=== PATIENT | male | born 1945 | race Caucasian/White ===

== ENCOUNTER → 2023-04-20 15:05 | Outpatient (REF) | payer MEDICARE, OTHER, SELFPAY | LOC: DHCBC MAIN 15:05 | PROVIDERS: ATTENDING PHYSICIAN Internal Medicine Cardiovascular Disease; FAMILY PHYSICIAN Internal Medicine | DX: I35.1 Nonrheumatic aortic (valve) insufficiency (principal) | CPT/HCPCS: 93306 ==

== ENCOUNTER 2023-10-12 07:10 | Day surgery (SDC) | payer MEDICARE, OTHER, SELFPAY | END 2023-10-12 10:28 | disposition home or self-care (01) | LOC: CATH 07:10 | PROVIDERS: ATTENDING PHYSICIAN Internal Medicine Cardiovascular Disease; FAMILY PHYSICIAN Internal Medicine | DX: I08.0 Rheumatic disorders of both mitral and aortic valves (principal) | CPT/HCPCS: 93312; 93320; 93325; 36415; 80053; 85025 ==

== ENCOUNTER 2023-10-15 07:31 | Day surgery (SDC) | payer MEDICARE, OTHER, SELFPAY ==
[2023-10-15 07:45] VITALS: BMI 29.4
[2023-10-15 07:57] VITALS: BP 131/53
[2023-10-15 08:01] VITALS: BP 131/53
[2023-10-15] MEDS: NSS 287 ML IV (08:17)
[2023-10-15 09:38] VITALS: BP 136/63
[2023-10-15 09:42] VITALS: BP 136/63
--- NOTE | 2023-10-15 10:09 | ITS.CL.CATH ---
Bottom Worker - Catheterization
Cardiac Catheterization
Procedure Report:
CARDIAC CATHETERIZATION REPORT
Date of Procedure: 10/15/2023
Referring: Doug An MD
HEMODYNAMIC DATA (mmHg)
AO: 128/61 (88)
LV: 121/11 (EDP 16)
CORONARY ANGIOGRAPHY
Dominance: Right
Left Main: Normal
LAD: 40% mid LAD stenosis that is angiographically slightly improved compared with its appearance on the prior study from 2020. There is diffuse tapering of the distal LAD without focal stenosis. There are mild luminal irregularities in a large D1
that are also mildly improved in appearance from prior.
Circumflex: Circumflex has 40% stenosis distal to the takeoff of the large OM1. OM1 has 40% mid vessel stenosis that is angiographically unchanged from prior study.
RCA: Dominant vessel with mild luminal irregularities in the RCA proper. There is 60% stenosis in the mid PDA unchanged in appearance from the prior study in 2020.
Closure Device: 6F Angioseal
Radiation (mGy): 484.54
DAP (cm2.Gy): 34.8429
Fluoroscopy time: 3.6 minutes
CONCLUSIONS
1. Stable mild CAD. The 40% LAD stenosis is angiographically stable and mild, and supplies a small territory. Would not consider bypassing the mid-LAD if the patient is to need AVR.
2. Mildly elevated LVEDP (16 mmHg). Of note, LV tracing does not demonstrate diastasis.
Copy to: Doug An MD
Masood Brandt MD, PhD
--- NOTE | 2023-10-15 12:04 | PTCARENOTE ---
Lunch relief. Bedside report taken from Asif BOURGEOIS. Pt w/o complaint at this time. Will continue to monitor
== END 2023-10-15 12:40 | disposition home or self-care (01) ==
LOC: CATH 07:31
PROVIDERS: ATTENDING PHYSICIAN Student in an Organized Health Care Education/Training Program; FAMILY PHYSICIAN Internal Medicine; OTHER PHYSICIAN Internal Medicine
DX: I25.10 Atherosclerotic heart disease of native coronary artery without angina pectoris (principal); I35.1 Nonrheumatic aortic (valve) insufficiency; Z79.82 Long term (current) use of aspirin; Z79.899 Other long term (current) drug therapy
CPT/HCPCS: 93458; C1760; C1894; Q9967

== ENCOUNTER → 2023-10-20 10:55 | Outpatient (REF) | payer MEDICARE, OTHER, SELFPAY | LOC: HWRAD 10:55 | PROVIDERS: ATTENDING PHYSICIAN Thoracic Surgery (Cardiothoracic Vascular Surgery) | DX: I35.1 Nonrheumatic aortic (valve) insufficiency (principal); Z01.818 Encounter for other preprocedural examination | CPT/HCPCS: 71275; 74174; Q9967 ==

== ENCOUNTER 2023-10-22 05:26 | Inpatient (IN) | payer MEDICARE, OTHER, SELFPAY ==
[2023-10-19 10:24] VITALS: BMI 30.3
[2023-10-19 11:15] LABS: % Basophils 0.6 % (0-2); % Eosinophils 1.5 % (0-6); % Immature Granulocytes 0.2 % (0-0.5); % Lymphocytes 17.8 % (20.5-51.1); % Monocytes 5.6 % (1.7-9.3); % Neutrophils 74.3 % (42.2-75.2); Absolute Basophils 0.1 10^3/uL (0-0.2); Absolute Eosinophils 0.1 10^3/uL (0-0.7); Absolute Lymphocytes 1.6 10^3/uL (1.2-3.4); Absolute Monocytes 0.5 10^3/uL (0.1-0.6); Absolute Neutrophils 6.5 10^3/uL (1.4-6.5); Hematocrit 41.3 % (39.0-52.0); Hemoglobin 14.2 g/dL (13.0-18.0); Mean Corp Hgb Conc. 34.4 g/dL (33.0-37.0); Mean Corpuscular Hgb 33.3 pg (27.0-31.0); Mean Corpuscular Volume 96.7 fL (80.0-94.0); Mean Platelet Volume 9.1 fL (7.4-10.4); Nucleated Red Blood Cells % 0 % (-); Platelet Count 205 10^3/uL (130-400); Red Blood Cell Count 4.27 10^6/uL (4.70-6.10); White Blood Cell Count 8.7 10^3/uL (4.8-10.8)
[2023-10-19 11:32] LABS: INR 1.07; PT 13.7 Sec (11.4-14.6)
[2023-10-19 11:33] LABS: APTT 30.4 Sec (23.4-35.0)
[2023-10-19 11:50] LABS: Urine Albumin Negative (Neg - Trace); Urine Bilirubin Negative (Negative); Urine Character Clear (Clear); Urine Color Yellow; Urine Glucose Negative (Negative); Urine Ketone Negative (Negative); Urine Leukocyte Negative (Negative); Urine Nitrite Negative (Negative); Urine Occult Blood Negative (Negative); Urine Urobilinogen Negative (Neg - 1+)
[2023-10-19 11:50] LABS: ALT (SGPT) 14 U/L (0-50); AST (SGOT) 20 U/L (17-59); Albumin 4.5 g/dl (3.5-5.0); Alkaline Phosphatase 57 U/L (38-126); Blood Urea Nitrogen 19 mg/dl (9-20); Calcium 9.7 mg/dl (8.4-10.2); Carbon Dioxide 29 mmol/L (22-30); Chloride 101 mmol/L (98-107); Direct Bilirubin 0.1 mg/dl (0.0-0.4); Estimated Creatinine Clearance 80 ml/min; Glucose 89 mg/dl (70-99); Potassium 4.5 mmol/L (3.5-5.1); Sodium 138 mmol/L (135-145); Total Bilirubin 0.9 mg/dl (0.2-1.3); Total Protein 6.7 g/dl (6.3-8.2); eGFR > 60.00
[2023-10-19 12:01] LABS: Glycohemoglobin (HgbA1c) 5.1 % (4.0-5.6)
--- NOTE | 2023-10-19 12:28 | CM ---
spoke to pt wilfred PAT, we discussed preop teaching including driving and lefiting restrictions. he is prev indep, lives with his in a 2 story home with no step sto enter. he denies any dme's. he has the cardiac educ book, soap and instructions. he
is agreeable to a f/u visit from the ct transitional care nurse after dc. plan is for AVR 10/21, cm role expalined and all questions answered.
[2023-10-22] VITALS (16 sets, daily range): BP systolic 105–140; BP diastolic 58–75; BMI 30.3; BMI 28.4
[2023-10-22] MEDS: BACTROBAN 2% OINTMENT 1 APPLIC NASAL ×2 (06:00→19:46)
[2023-10-22] MEDS: LOPRESSOR 12.5 MG PO (06:00)
[2023-10-22] MEDS: PROTONIX 40 MG PO (06:01)
[2023-10-22] MEDS: MAGNESIUM OXIDE 500 MG PO (06:01)
--- NOTE | 2023-10-22 06:25 | W.CVOR.SURPR ---
CVOR Surgeon Immed Pre Op
-
I have examined this patient prior to performance of the scheduled procedure.
The patient's condition is unchanged from the time of the dictated/written History and
Physical and the patient is able to undergo the scheduled procedure.
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
Understands that it will be an intraop decision to place 5.5 Impella
Elevated CHADsVAsc Score - RAUL Clip indicated
--- NOTE | 2023-10-22 06:51 | PTCARENOTE ---
Pt admitted to CVICU at 0534. VS done. Pt weighed. Pt clipped and prepped per CVOR protocol. CHG bath completed. ABO sent. Pt has been NPO since 10/21/23 at 1700. He had his 2 Hibiclens showers, as ordered. Pre op meds given. HR 54. LUMA Flannery
notified. Order given to decrease Metoprolol to 12.5 mg this am. at bedside this am. Dr. Mayer in to see pt and . Pt taken to CVOR with 2 RNs at 0630. Report given to CVOR RN.
[2023-10-22 07:05] LABS: ACT+ - POC 104 Seconds (82-134)
[2023-10-22 07:30] LABS: Urine Albumin Negative (Neg - Trace); Urine Bilirubin Negative (Negative); Urine Character Clear (Clear); Urine Color Yellow; Urine Glucose Negative (Negative); Urine Ketone Negative (Negative); Urine Leukocyte Negative (Negative); Urine Nitrite Negative (Negative); Urine Occult Blood 3+ (Negative); Urine Urobilinogen Negative (Neg - 1+)
[2023-10-22 07:52] LABS: B.E. - POC 1.6 mmol/L; Glucose - POC 94 mg/dl (65-99); HCO3 - POC 27 mmol/L (21-29); Hematocrit - POC 32 % PCV (42-52); Hemodilution- POC No; Hemoglobin Calculated - POC 10.9; Ionized Calcium - POC 1.17 mmol/L (1.12-1.27); PCO2 - POC 45 mmHg (35-45); PO2 - POC 584 mmHg (80-100); POC Comment PRE; Potassium - POC 3.3 mmol/L (3.6-5.0); Sodium - POC 142 mmol/L (135-145); pH - POC 7.39 (7.35-7.45)
[2023-10-22 08:13] LABS: ACT+ - POC 561 Seconds (82-134)
[2023-10-22 08:27] LABS: Urine Red Blood Cell 30-40 /HPF (0-2); Urine White Cell 0-2 /HPF (0-5)
[2023-10-22 08:34] LABS: B.E. - POC 1.1 mmol/L; Glucose - POC 89 mg/dl (65-99); HCO3 - POC 27 mmol/L (21-29); Hematocrit - POC 32 % PCV (42-52); Hemodilution- POC Yes; Ionized Calcium - POC 1.17 mmol/L (1.12-1.27); O2 Saturation %Calculated-POC 79.4 5 (92-96); PCO2 - POC 48 mmHg (35-45); PO2 - POC 46 mmHg (80-100); POC Comment MIXED VENOUS; Potassium - POC 3.5 mmol/L (3.6-5.0); Sodium - POC 141 mmol/L (135-145); pH - POC 7.36 (7.35-7.45)
[2023-10-22 08:45] LABS: ACT+ - POC 553 Seconds (82-134)
[2023-10-22 09:01] LABS: B.E. - POC 5.2 mmol/L; Glucose - POC 101 mg/dl (65-99); HCO3 - POC 28 mmol/L (21-29); Hematocrit - POC 26 % PCV (42-52); Hemodilution- POC Yes; Hemoglobin Calculated - POC 8.7; Ionized Calcium - POC 1.02 mmol/L (1.12-1.27); O2 Saturation %Calculated-POC 99.9 5 (92-96); PCO2 - POC 35 mmHg (35-45); PO2 - POC 246 mmHg (80-100); POC Comment CPB; Potassium - POC 4.4 mmol/L (3.6-5.0); Sodium - POC 139 mmol/L (135-145); pH - POC 7.51 (7.35-7.45)
[2023-10-22 09:11] LABS: ACT+ - POC 541 Seconds (82-134)
[2023-10-22 09:52] LABS: Glucose - POC 122 mg/dl (65-99); HCO3 - POC 28 mmol/L (21-29); Hematocrit - POC 31 % PCV (42-52); Hemodilution- POC Yes; Hemoglobin Calculated - POC 10.5; Ionized Calcium - POC 1.05 mmol/L (1.12-1.27); PCO2 - POC 37 mmHg (35-45); PO2 - POC 473 mmHg (80-100); POC Comment WARM; Potassium - POC 4.5 mmol/L (3.6-5.0); Sodium - POC 140 mmol/L (135-145)
[2023-10-22 09:57] LABS: ACT+ - POC 109 Seconds (82-134)
[2023-10-22 10:23] LABS: B.E. - POC 1.7 mmol/L; Glucose - POC 150 mg/dl (65-99); HCO3 - POC 26 mmol/L (21-29); Hematocrit - POC 30 % PCV (42-52); Hemodilution- POC Yes; Hemoglobin Calculated - POC 10.3; Ionized Calcium - POC 1.29 mmol/L (1.12-1.27); O2 Saturation %Calculated-POC 99.7 5 (92-96); PCO2 - POC 40 mmHg (35-45); PO2 - POC 200 mmHg (80-100); POC Comment POST; Sodium - POC 142 mmol/L (135-145); pH - POC 7.43 (7.35-7.45)
[2023-10-22 10:45] LABS: Glucose - Point of Care 161 mg/dl (70-99)
--- NOTE | 2023-10-22 10:51 | W.PN.UPDATE ---
Update Note
Progress Note Update
IV fluids: 1100
U.O.:� 1000
UF:� 2000
Blood:� none (2units of cellsaver)
Wires:� A+V
Inotropes:�Dobutamine
Pressors:� levo
Sedatives:� precedex
�
NEURO: sedated on Precedex, pupils +Xmm B/L
RESP: #8OT @24cm> 16/550/60/5. Lungs clear B/L. 2 mediastinal (30cc on arrival) chest tubes to -20cm suction. Sanguineous drainage
CV: RRR +S1, S2, no S3, no�rub, no murmur. Dermabond to median sternotomy. RIJ w/Hardaway locked @ 48cm. PA ; CVP 8;
ABD: round, soft, no BS
EXT: no edema, +2/4 DP pulses B/L, no femoral bruit, left radial A-line intact
: Christopher with clear yellow urine
�
A/P: POD #0 s/p Surgical aortic valve replacement [29 mm bioprosthesis], LAAC
ANDI: EF�30% w/ no sig wall motion abnormalities
- wean and extubate
- Monitor CT and urine output
- Follow up labs and CXR
- Wean levophed for maps >65
- Will start ASA tonight
- EKG pending and will send to cards
- required amio bolus and lidocaine intraop for Vfib Shock x1
>>currently junctional; hold amio
- Cards consulted
- will need instruction regarding antibiotic prophylaxis for dental and invasive procedures
�
# acute surgical blood loss anemia-expected
- trend CBC
- transfusion goal Hgb <7
- Continue Iron supplementation�
�
# hyerglycemia
- insulin infusion x 24h
- hgb A1c 5.1
�
# Hyperlipidemia
- resume�statin when tolerating PO
--- NOTE | 2023-10-22 10:54 | W.PN.CT.SURG ---
CT Surgery Operative Note
-
CARDIAC SURGERY OPERATIVE REPORT
Preoperative Diagnosis: Aortic valve insufficiency, severe, with dilated left ventricle and reduced left ventricular ejection fraction
Postoperative Diagnosis: Same
Procedure(s) Performed:
1. Standard sternotomy with aortic and right atrial cannulation
2. Surgical aortic valve replacement [29 mm bioprosthesis]
3. Left atrial appendage exclusion [35 mm clip]
4. Transesophageal echocardiography
5. Placement of temporary atrial and ventricular pacing wires
Date of Surgery: 10/22/2023
Comorbidities:
1. Severe aortic valve insufficiency with reduced left ventricular ejection fraction and dilated left ventricle
2. Chronic nonischemic systolic heart failure with dilated left ventricle
3. History of EtOH usage
4. Mild stable coronary disease
5. Chronic Left bundle branch block
6. Osteoarthritis
7. Squamous cell carcinoma
Attending Surgeon: Wiliam Mayer MD, MS
Assistants: Gely Cramer PA-C (present and necessary to machinist first class, retraction, suction, exposure, suture management, and wound closure under my direction)
Anesthesiology: Dago Atkinson MD and Sharona Jacobs CRNA
Scrub and Circulating RNs: Daina Mckenzie RN, Christina Flores RN
Practical Nursing Teacher: Paulette Hernandez CCP
Anesthesia: GETA
EBL: per perfusion records
Products: none, 2 bowls of Cell Saver
CPB Time: 76 minutes
Aortic Cross Clamp Time: 51 minutes
Indication(s) for Procedures: This is a 78-year-old male with known nonischemic cardiomyopathy with previous severe global hypokinesis of an EF of 15% in the past. He underwent GDMT and ultimately had some improvement in his left ventricular
function. His most recent echo demonstrated severe eccentric aortic valve insufficiency as well as concomitantly dilated left ventricle and mild to moderately reduced left ventricular function. Due to the drop in his left ventricular function,
will multidisciplinary team discussion felt there was appropriate to move forward with surgical aortic valve replacement. Due to his reduced left ventricular ejection fraction, we had tentative plans for possible ventricular assist device placement
at time of surgery. His GHP1AS1-AARg score was elevated and so his left atrial appendage will be managed at time of surgery.
Aortic Valve Description: Prolapse of the left and non cusp resulting in an eccentric insufficient jet
Findings: His left ventricular ejection fraction following duction of anesthesia was approximately 30% with no significant regional wall motion abnormalities. It was global. Following surgery his EF remained the same at 30% with no new regional
wall motion abnormalities. His aortic valve was replaced with a 29 mm bioprosthesis in an inverted fashion with nonpledgeted 2 Ethibond sutures going from LVOT through annulus through sewing cuff of the valve. A total of 18 nonpledgeted 2 Ethibond
sutures were used secured with core knots. His left atrial appendage was verified to be free of any thrombus or debris preoperatively on transesophageal echocardiography and found to be totally occlusive with no residual stump of color flow on
Doppler. The bioprosthetic valve had normal excursion of all leaflets, the mean gradient across the valve at her normal blood pressure was 4 mmHg, and there was no paravalvular leak. Following cardiopulmonary bypass he was maintained on 5 of
dobutamine and low-dose Levophed but no escalation in his support. Due to the appearance of his valve and relative stability at the end the case, I opted not to place ventricular assist device. No blood products were required. He did receive 2
bowls of Cell Saver scavenged blood. Of note, full removal of the cross-clamp he did start defibrillate requiring 1 cardioversion at 50 J and 100 of lidocaine. Following this, he tolerated pacing and did not have any more fibrillatory events. We
left the OR on DDI at 70bpm. Cardiac Index starting the surgery was 1.7 and was 2.9 following chest closure.
Specimen(s): Aortic valve leaflets.
Prosthesis:
1. 29mm Medtronic Avalus Ultra AVR, SN [id number]
2. 35mm Medtronic Penditure RAUL Clip, SN [id number]
3. PrevaLeak Sealant, SN [id number]
Description of Procedure: The patient was taken to the operating room. Their identity and procedure to be performed were verified and they were positioned supine on the operating table. Induction via general anesthesia with endotracheal intubation
was performed and central venous access and arterial monitoring were inserted. A preoperative transesophageal echocardiogram was performed to assess cardiac function and valvular function. The patient was then prepped and draped from chin to feet in
a sterile fashion. A preoperative time-out was performed with all members of the team present. A midline chest incision was performed along with median sternotomy. The innominate vein was isolated. Full heparinization was given (a total of 50,000
units). We created a pericardial well. The aortic cannulation site was chosen where it was soft, pliable, and free of calcium. Cannulation was performed with an arterial cannula in the ascending aorta and a triple-stage venous cannula through the
right atrial appendage. The arterial cannula line had an appropriate bounce and correlating pressures with test dosing. I have a retrograde coronary sinus catheter was placed via the right atrium under ANDI and manual guidance. The ACT was
confirmed to be over 400 and retrograde autologous priming was performed before commencing cardiopulmonary bypass. Next, a left ventricular vent was placed via the right superior pulmonary vein. The pulmonary artery was away from the
aorta to facilitate a clamp site and aortotomy. The aortic cross-clamp was placed after decreasing the flow on the bypass and mean arterial pressure. A total of 1.2L initial dose of retrograde and direct ostial antegrade Del-Nido cardioplegia
solution was given and planned for re-dosing every 75 minutes as necessary. There was rapid electro-mechanical arrest of the heart at 400 cc of cardioplegia. While retrograde was running, the aorta was opened approximately 2 cm above the right
coronary artery. Carbon dioxide was used to flood the field. Cardioplegia was visualized emanating from the left main and from the right. Stay sutures were placed along the aorta and to facilitate exposure. Cold slush was placed into a sponge and
topically on the RV while we systemically cooled to 34 degrees centigrade.
Once cardioplegia was complete, the heart was medialized and the ligament of Sunil was divided. A 35 mm clip was applied flush the base left atrial appendage. I then turned my attention back towards the aortic root. The leaflets were excised
and sent for pathological assessment. There was minimal calcification of the annulus. A total of 18 non-pledgeted 2-0 ethibond inverted annular sutures were placed [id number] circumferentially. These were brought through the sewing cuff of the
prosthetic valve which as then parachuted into place. The left and right coronary ostia were visualized and were unobstructed by the valve. A Cor-Knot device was used to secure the annular sutures. The valve was inspected and was well seated. The
aortotomy was approximated with 4-0 prolene in two layers. De-airing maneuvers were performed and temporary bipolar ventricular pacing wires were placed on the base of the right ventricle. The patient was placed in a Trendelenburg position and flows
on bypass were lowered. The aortic cross clamp was removed and flows were slowly brought back up. The aortotomy appeared hemostatic. Transesophageal echocardiography revealed no paravalvular leak and appropriate prosthetic function. Once de-airing
was satisfactory, the left ventricular and root vents were removed. After verifying acceptable parameters, we initiated a slow wean from cardiopulmonary bypass due to his poor left ventricular function. Once we were off cardiopulmonary bypass, the
venous cannula was clamped and removed. A test dose of protamine was administered and the patient was monitored for any adverse reaction before resuming protamine. Once half of the protamine dose was delivered, pump suckers were turned off and the
systolic blood pressure was lowered for aortic decannulation. The aortic cannula was removed and pursestrings were tied down. All cannulation sites were oversewn with a 4-0 prolene. The aortotomy suture line was inspected and hemostasis was
confirmed. Mediastinal hemostasis was obtained. Two 24Fr Aravind drains were placed within the pericardium. The sternum was approximated with 4 #7 single and 3 #8 double stainless steel wires. Fascia was approximated with #1 vicryl suture. The
subcutaneous, dermis and epidermis were closed in layers in a running fashion. The skin wound was cleansed and dressed.
All instrument, sponge, and needle counts were confirmed to be correct x 2 at the end of the operation. The patient was transferred to the cardiac intensive care unit in critical but stable condition.
I, Dr. Wiliam Mayer, was present, scrubbed for, and performed all critical elements of this procedure.
Wiliam Mayer MD, MS
Cardiothoracic Surgeon
[facility]
This operative dictation was created using the [employer] dictation system. Please excuse any grammatical, typographical, or 'sound alike' errors
[2023-10-22 10:59] LABS: Mixed Venous O2 Saturation 81.8 %
[2023-10-22 11:01] LABS: B.E. 0.7 mmol/L; HCO3 25.4 mmol/L (21-28); PCO2 40 mmHg (35-48); PO2 168 mmHg (83-108); Potassium 3.8 mMOL/L (3.5-5.1); Sodium 135 mMOL/L (136-145); pH 7.41 (7.35-7.45)
[2023-10-22] MEDS: NSS 500 IV (11:03)
[2023-10-22] MEDS: ANCEF 10 IV ×2 (11:03)
[2023-10-22] MEDS: NEURONTIN PO ×2 (11:04→16:04)
[2023-10-22] MEDS: PRAVACHOL PO (11:06)
[2023-10-22 11:07] LABS: APTT 32.6 Sec (23.4-35.0); INR 1.64; PT 19.2 Sec (11.4-14.6)
[2023-10-22 11:11] LABS: Blood Urea Nitrogen 15 mg/dl (9-20); Estimated Creatinine Clearance 85 ml/min; Glucose 159 mg/dl (70-99); Magnesium 2.6 mg/dl (1.6-2.3)
[2023-10-22] MEDS: LACTATED RINGERS 250 IV ×2 (11:15→16:33)
[2023-10-22 11:28] LABS: Hematocrit 34.9 % (39.0-52.0); Hemoglobin 12.4 g/dL (13.0-18.0); Platelet Count 137 10^3/uL (130-400)
[2023-10-22] MEDS: KCL 50 IV ×2 (11:29→12:35)
--- NOTE | 2023-10-22 11:40 | PTCARENOTE ---
Pt received from CVOR at 1040; Sedated and intubated; 100% AV paced rhythm on monitor; VSS; Epicardial AV wires present with settings DDI 74/0.5/0.8; DP and radial pulses present; Lungs diminished at bases; ETT size 8 positioned and secured at 23 cm
right lip; Ventilator settings SIMV 16/550/5/5 FiO2 40%; CTx2 to -20 cm wall suction draining bloody drainage - no air leak, tidaling, or crepitus noted; Hypoactive BS; Christopher catheter in place draining clear, yellow urine; Sternal incision w/ scant
amount of bloody drainage; Left A-line in place, Kadeem El present in right Cordis at 45 cm - all lines zeroed and leveled; #18 PIV present in right forearm; Levo/insulin/precedex/dobutamine infusing - see nursing flowsheets for further details;
250 ml bolus of LR ordered and given; Potassium repleted x1; see nursing documentation for further details.
CO: 5.89
CI: 2.72
SVR: 923
[2023-10-22 11:55] LABS: Glucose - Point of Care 182 mg/dl (70-99)
--- NOTE | 2023-10-22 12:18 | W.PN.CD ---
Addendum entered and electronically signed by Doug An MD 10/22/23 16:06:
I saw and examined the patient.
The ETYMOLOGY TEACHER's note was reviewed and I agree with the note.
Comment: 78M with HFrEF, nonobstructive CAD, LBBB, asthma, and severe aortic regurgitation presented for AVR.
- wean dobutamine and vent
- GDMT when appropriate
Addendum entered and electronically signed by ROSANGELA Ramirez 10/22/23 13:12:
IntraOp VF requiring amnio bolus, lidocaine, and defibrillation x 1
Original Note:
Today's Communication / Plan
-
Follow telemetry
EKG in a.m.
Impression / Plan
-
BACKGROUND: 78M with HFrEF, nonobstructive CAD, LBBB, asthma, and moderate aortic regurgitation presented for AVR.
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 An
Status post surgical aortic valve replacement (29 mm bioprosthesis) on 10/22/[address] Mayer
-Preop LVEF 30%, unchanged without RWMA postoperatively
-EKG with atrial fibrillation versus junctional rhythm, EKG in am
-Paced at 74 bpm
-Follow telemetry
-Post operative care per CT surgery
HFrEF, chronic
-Maintain euvolemia
-Resume GDMT as tolerated
-SGLT2i: Refused by the patient outpatient setting, case management to assess for affordability
-Beta-lenin: Carvedilol 3.125 mg twice daily (on hold)
-MRA: Spironolactone 25 mg daily (on hold)
-AUDELIA/ARB: Sacubitril�valsartan 49-51 mg twice daily (on hold)
-Diuretic: In the outpatient setting he requires 80 every other day, 40 every other day to maintain euvolemia
-ICD: Re-assess LVEF in 3 months
-Trend daily weight, I/O, and BMP
Nonobstructive coronary artery disease
LBBB, chronic
SUBJECTIVE:
Operative notes reviewed. Patient is intubated and sedated.
Physical Exam
Vital Signs/Labs
Vital Signs
Temp Pulse Resp BP Pulse Ox
98.0 F 74 16 118/64 99
10/22/23 12:15 10/22/23 12:00 10/22/23 12:00 10/22/23 12:00 10/22/23 12:00
10/21/23 10/22/23 10/23/23
06:59 06:59 06:59
Actual Weight 94.8 kg
10/22/23 10:43
PT 19.2 Sec (11.4-14.6) H 10/22/23 10:43
INR 1.64 10/22/23 10:43
APTT 32.6 Sec (23.4-35.0) 10/22/23 10:43
Magnesium 2.6 mg/dl (1.6-2.3) H 10/22/23 10:43
Physical Exam
Constitutional: No acute distress and Comfortable
EENT: Anicteric and Moist mucous membranes
Cardiovascular: Rhythm & rate is regular
Respiratory: Lungs clear to auscul. and Other (On mechanical ventilation)
GI: Soft, Distention absent, Flat, Non tender and Normal bowel sounds
Neuro/Psych: AO x 3
Other: Skin (Warm and dry without edema )
Data Reviewed
-
Date of Service: October 22, 2023
--- NOTE | 2023-10-22 12:55 | PTCARENOTE ---
RT in room and pt placed on CPAP. ABG's due at 1325
[2023-10-22 13:07] LABS: Glucose - Point of Care 129 mg/dl (70-99)
[2023-10-22] MEDS: TYLENOL PO (13:16)
[2023-10-22 13:40] LABS: B.E. 0.3 mmol/L; HCO3 24.6 mmol/L (21-28); Ionized Calcium 1.16 mMOL/L (1.15-1.33); O2 Saturation % 99.7 % (94-98); PCO2 38 mmHg (35-48); PO2 166 mmHg (83-108); Potassium 4.3 mMOL/L (3.5-5.1); Sodium 137 mMOL/L (136-145); pH 7.42 (7.35-7.45)
--- NOTE | 2023-10-22 13:56 | PTCARENOTE ---
ABG's reviewed; RT at bedside; Pt extubated at 1355; Pt placed on 6L NC.
--- NOTE | 2023-10-22 14:01 | RESPNOTE ---
Extubated to 6 liter NC without incident-- 99% HR 74
[2023-10-22 14:04] LABS: Glucose - Point of Care 112 mg/dl (70-99)
[2023-10-22] MEDS: CALCIUM CHLORIDE 10% SYRINGE 50 MG IV (14:30)
[2023-10-22] MEDS: CALCIUM CHLORIDE 10% SYRINGE 50 ML IV (14:30)
--- NOTE | 2023-10-22 14:51 | CON.INTV ---
Consultation
Consultation Request
Date/Time Consultation Requested: 10/22/23
Date/Time Consultation Performed: 10/22/23
Performing Provider: Travis
Reason for Consultation: CVICU
Medical History
-
History of Present Illness:
Patient is a 78-year-old male with previous history of heart failure with reduced ejection fraction, aortic valve insufficiency, asthma, hypertension presenting for elective surgical replacement of aortic valve. He has had severe aortic valve
insufficiency with associated nonischemic reduced left ventricular function, BLANC, RBBB/LBBB. Underwent replacement on 10/22/2023 and postoperatively transferred to CVICU for further management.
Past Medical History
Past Medical History: Other (see list below)
Social History
Tobacco: Non-smoker
Alcohol: None
Drug: None
Family History
Family History: Reviewed & Not Pertinent
Allergies / Home Medications
Allergies
Allergy/AdvReac Type Severity Reaction Status Date / Time
benzalkonium chloride Allergy Mild Rash Verified 10/22/23 06:23
meloxicam Allergy 'triggered Verified 10/22/23 06:23
asthma'
NSAIDS (Non-Steroidal Allergy 'triggered Verified 10/22/23 06:23
Anti-Inflamma asthma'
Home Medications
�Medication �Instructions �Recorded �Confirmed �Last Taken �Type
calcium carbonate 600 mg PO QPM Supplement 12/02/17 10/22/23 10/15/23 09:00 History
multivitamin 1 tab PO QPM Supplement 12/02/17 10/22/23 10/15/23 09:00 History
Vitamin E (Dl,Tocopheryl Acet) 180 mg PO DAILY Supplement 11/21/20 10/22/23 10/15/23 09:00 History
[Vitamin E]
ascorbic acid (vitamin C) 1,000 mg 1,000 mg PO QPM Supplement 11/21/20 10/22/23 10/15/23 09:00 History
tablet (Vitamin C)
carvedilol 3.125 mg tablet 3.125 mg PO BID Heart 11/21/20 10/22/23 10/21/23 16:00 History
disease/condition
cholecalciferol (vitamin D3) 100 100 mcg PO QPM Supplement ##0 11/21/20 10/22/23 10/15/23 09:00 History
mcg (4,000 unit) tablet
coenzyme Q10 300 mg capsule (Co 300 mg PO DAILY Supplement 11/21/20 10/22/23 10/20/23 16:00 History
Q-10)
pravastatin 20 mg tablet 20 mg PO DAILY High cholesterol 11/21/20 10/22/23 10/20/23 09:00 History
spironolactone 25 mg tablet 25 mg PO DAILY Heart 11/21/20 10/22/23 10/20/23 09:00 History
disease/condition
acetaminophen 325 mg tablet 650 mg (2 x 325 mg) PO Q4HPRN PRN 11/22/20 10/22/23 10/21/23 16:00 Rx
mild pain
fexofenadine 180 mg tablet 180 mg PO DAILYPRN PRN seasonal 10/12/23 10/22/23 10/20/23 09:00 History
(Romi Allergy) allergies
aspirin 81 mg chewable tablet 81 mg PO DAILY 10/15/23 10/22/23 10/21/23 09:00 History
furosemide 40 mg tablet 40 mg PO Q OTHER DAY 10/15/23 10/22/23 10/20/23 09:00 History
furosemide 40 mg tablet 80 mg PO Q OTHER DAY 10/15/23 10/22/23 10/19/23 16:00 History
potassium chloride 20 mEq 20 meq PO QPM 10/15/23 10/22/23 10/20/23 16:00 History
tablet,extended release
sacubitril 49 mg-valsartan 51 mg 1 tab PO BID 10/15/23 10/22/23 10/20/23 16:00 History
tablet (Entresto)
Review of Systems
-
History Source: Patient
All other systems: Negative unless noted
Vitals / Labs / Diagnostic Testing
Vital Signs
Temp Pulse Resp BP Pulse Ox
99.1 F 74 0 119/70 99
10/22/23 14:00 10/22/23 14:15 10/22/23 14:15 10/22/23 14:00 10/22/23 14:15
Lab Data
10/22/23 10:43
Laboratory Results
10/22/23 10/22/23
10:43 13:28
PT 19.2 H
INR 1.64
APTT 32.6
pH 7.41 7.42
pCO2 40 38
pO2 168 H 166 H
HCO3 25.4 24.6
O2 Delivery Level
Microbiology
10/19/23 10:37 Nose MRSA Screen - Final
No Methicillin Resistant Staphylococcus aureus isolated.
Diagnostic Testing:
Physical Exam
-
HEENT: Normocephalic, Anicteric and Moist Mucous Membranes
Cardiovascular: S1/S2 and Regular Rhythm
Respiratory: Clear, Non-Labored Respirations and Other (Chest tube)
GI: Soft, Non Distended and Non Tender
Neurology: Awake, Alert, Oriented, AO x 3 and No Motor Deficits
Skin: Warm, Dry and Good Color
General: Comfortable and Other (NAD)
Assessment
-
Patient is a 78-year-old male with previous history of heart failure with reduced ejection fraction, aortic valve insufficiency, asthma, hypertension presenting for elective surgical replacement of aortic valve. He has had severe aortic valve
insufficiency with associated nonischemic reduced left ventricular function, BLANC, RBBB/LBBB. Underwent replacement on 10/22/2023 and postoperatively transferred to CVICU for further management.
Severe eccentric aortic regurgitation s/p AVR
Perioperative mechanical ventilation
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
Alcohol abuse history
Non-ischemic dilated CM EF=35% (ANDI 10/12/23)
Mild stable CAD, Severe global hypokinesis with EF 15-20% (Cath9/16/21)
Cardiac Cath-Severe global hypokinesis with EF 24%, Multivessel CAD 12/02/2017
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
Osteoarthritis
LBBB
HFrEF
Squamous cell skin cancer s/p excision-back 12/29/19
Precancerous mole removal-back 05/15/11
Mole excision-back 02/20/22
Mohs 12/19/23
HTN
Appendectomy(1961)
[facility]- bee sting 08/2023
Plan
S/p AVR POD #0
Titrate off pressors per protocol
ECHO reviewed with low function, EF 40%
PA catheter readings reviewed
Management of chest tubes per primary service
Pain control
RASS goal of 0 to -1
Intubated for procedure, extubated and doing well
ABG(s) reviewed
CXR with no obvious opacities/infiltrates, low lung volumes, lines/tubes in place
Maintain supplement oxygen as needed
No prior history of pulmonary disease, patient denies
No prior PFTs for review
Can add nebulizers if needed
Aspiration precautions
Encouraged incentive spirometry, OOB/ambulation/early mobility
Advance diet as tolerated following extubation
GI prophylaxis if indicated for mechanical ventilation >48 hours
Monitor critical I/O's
Christopher/chest tube output
Hb/platelets postoperatively stable
Trend CBC for now
Can transfuse if indicated for Hb <7, plt <50 in surgical patients
DVT prophylaxis including SCDs
Insulin protocol initiated and ongoing
Transition to SQ/off as indicated per team
We will follow
Diagnostic Data
Chest X-Ray: 10/22/23- Low lung volumes. No active pulmonary process.
CT Scan: CAP 10/20/23- 1. Aortic atherosclerotic changes. No aneurysmal dilation. No aortic stenosis. Mild ectasia left common iliac artery.
2. No acute pulmonary or intra-abdominal process.
3. Prostatomegaly and moderate distention of the urinary bladder suggesting possible outlet obstruction.
Echo: 10/12/23- Dilated LV with moderately reduced systolic function. LVEF is approximately 35% by visual estimation. Mild diffuse global hypokinesis. Normal RV size and function. Severe eccentric aortic regurgitation likely from non and left
coronary cusp mild coaptation. Compared to prior TTE from April 20, 2023, eccentric aortic regurgitation better visualized and is severe on today's study.
[facility] 10/15/23- CONCLUSIONS
1. Stable mild CAD. The 40% LAD stenosis is angiographically stable and mild, and supplies a small territory. Would not consider bypassing the mid-LAD if the patient is to need AVR.
2. Mildly elevated LVEDP (16 mmHg). Of note, LV tracing does not demonstrate diastasis.
PFT's:
Reports and relevant images were personally reviewed.
-----
Critical Care time 51 mins -- The patient is admitted for acute critical illness for the treatment of vital organ failure and/or prevention of further life-threatening conditions. Total care includes time spent in review of history, physical exam,
medications, hemodynamic/ventilator parameters, laboratory data, imaging and discussion with house staff, pharmacy, respiratory therapy, cattyman, and nursing.
[2023-10-22 14:59] LABS: Hemoglobin 12.6 g/dL (13.0-18.0); Platelet Count 164 10^3/uL (130-400)
[2023-10-22] MEDS: LOW STRENGTH ASPIRIN 81 MG PO (15:01)
[2023-10-22 15:02] LABS: Glucose - Point of Care 111 mg/dl (70-99)
[2023-10-22] MEDS: ANCEF 5 IV (16:05)
--- NOTE | 2023-10-22 16:38 | CM ---
pt in OR today, cm to follow.
--- NOTE | 2023-10-22 16:38 | CM ---
priced lilyga with pts [facility]- his co pay is $11/month
[2023-10-22 17:07] LABS: Glucose - Point of Care 98 mg/dl (70-99)
--- NOTE | 2023-10-22 17:39 | PTCARENOTE ---
250 ml LR bolus ordered and given for low CVP/low UOP; Dobutamine adjusted to 2 mcg/min as per CVNP Fernanda orders; Oxygen titrated down to 2L NC - pt 96-100%.
--- NOTE | 2023-10-22 18:07 | PTCARENOTE ---
Dobutamine adjusted back to 3 mcg/min as per CVNP Armando Cowan orders.
[2023-10-22] MEDS: TYLENOL 650 MG PO (18:11)
[2023-10-22 19:13] LABS: Glucose - Point of Care 116 mg/dl (70-99)
[2023-10-22] MEDS: CALCIUM CHLORIDE 10% SYRINGE 60 MG IV (20:57)
[2023-10-22] MEDS: SENOKOT-S 1 TABLET PO (20:57)
[2023-10-22] MEDS: NEURONTIN 100 MG PO (21:00)
[2023-10-22 21:02] LABS: Glucose - Point of Care 132 mg/dl (70-99)
[2023-10-22] MEDS: DILAUDID 0.25 MG IV (21:13)
--- NOTE | 2023-10-22 21:20 | PTCARENOTE ---
Urine output low for last hour. CV PA Ed notified and aware - no further orders given at this time. IV calcium chloride ordered and given; Levo decreased to 1 mcg/min. Patient c/o 5/10 dull, aching pain in chest, neck, and upper back - PRN IV
Dilaudid given accordingly.
--- NOTE | 2023-10-22 22:25 | PTCARENOTE ---
Temporary pacemaker adjusted by CVPA Ed - new settings DDI 45/0.5/0.8; patient in NSR with occasional PVC's on monitor with HR in 60's. Levo turned off at 2214.
--- NOTE | 2023-10-22 22:41 | PTCARENOTE ---
Pt's temporary pacemaker inappropriately pacing patient; CVPA Ed changed rate to 40 and output to 0 for AV epicardial wires; AV wires still connected to temporary pacemaker; Patient remains NSR on monitor.
[2023-10-22 23:00] LABS: Glucose - Point of Care 110 mg/dl (70-99)
[2023-10-23] VITALS (40 sets, daily range): BP systolic 97–159; BP diastolic 51–87; PULSE 59; O2SAT 100; BMI 29.2; BMI 28.6
--- NOTE | 2023-10-23 | PTCARENOTE ---
Pt helped to standing at side of bed at 2230. Attempted to void without success. Pt helped back to bed. Pt bladder scanned for 525 mls. PA aware. Order placed for indwelling liu catheter overnight. #16 Fr liu catheter inserted via sterile
technique and according to hospital protocol. Pt tolerated procedure. 500 mls of clear, yellow urine out.
Oxycodone 2.5 mg given for c/o 5/10 sternal pain and B upper shoulder blade pain.
Pt given CHG bath, face washed. New gown provided.
Pt attempting to go to sleep for the evening.
Dobutamine remains at 1.5 mcg/kg/min. VS q 1 hr.
--- NOTE | 2023-10-23 00:30 | PTCARENOTE ---
Pt assessed at 1930 and reassessed at SD. Pt remains neuro intact, speech clear. Sats on 2L are 98-99%. BBS present. Decreased to B bases. IS encouraged q 1 hr while awake. Peak 2L. Audible heart tones. Pt in SR, 60's, with occasional polymorphic
PVCs. (Pt's own intrinsic rhythm). A and V wires attached to temp PM. PM off. PM was inappropriately sensing via the V wire with maximum sensitivity (0.8). Ed PA at bedside and instructed PM to be off, yet remain attached to AV wires. Levo gtt
remains off. MAP 70-82. Dobutamine gtt at 3 mcg/kg/min. Will repeat a CI. For pulse quality and wound assessment, see flowsheets. CT output and urine output monitored q1 hr and prn. Urine clear and yellow, liu catheter intact. Glycemic protocol
followed. C/o 4/10 sternal pain and pain to B shoulder blades. To give Dilaudid 0.25 mg IV. See MAR. Ongoing plan of care.
[2023-10-23] MEDS: TYLENOL 1000 MG PO ×4 (00:40→23:06)
[2023-10-23] MEDS: ANCEF 5 IV ×2 (00:40→10:27)
[2023-10-23] MEDS: DILAUDID 0.25 MG IV ×2 (00:49→06:27)
[2023-10-23 01:08] LABS: Glucose - Point of Care 93 mg/dl (70-99)
--- NOTE | 2023-10-23 01:26 | PTCARENOTE ---
Pt with 22 beat run VT, converting to SR, rate 60's (pt's own, intrinsic rhythm) Temporary PM remains off, AV wires attached to PM. CI (done minutes prior to run of VT) was 2.88. Dobutamine gtt decreased to 2.5 mcg/kg/min. CT output for the hour was
25 mls. Pt remained awake. Sats on 2L/NC/O2 were 99%.
--- NOTE | 2023-10-23 03:28 | W.PN.CT ---
Today's Communication / Plan
-
Plan:
-No major issues overnight. Hemodynamically and neurologically intact
-Successfully extubated on 10/22/23 @ 1400
-Was A-V paced @ 70 bpm postop until 2214 last night, currently NSR 60 bpm. Noted to be bradycardic @ 51 bpm preop
-Temporary noted to be intermittently inappropriately pacing, currently turned off
-Had NSVT and hypertensive with dobutamine @ 3 mcg/kg/min, weaned to 2 mcg
-Weaned off Levophed gtt overnight, Dobutamine gtt weaned to 2.0 mcg/kg/min, insulin gtt remains per protocol
-Last CI 2.51 with dobutamine @ 2 mcg, was 2.9 with dobutamine @ 2.5 mcg, U/O since OR 780 mL
-Cont. current meds (ASA, pravastatin, dobutamine; held Amiodarone last night, cont. to hold BB while on dobutamine)
-Wean off dobutamine as tolerated
-D/C swan and a-line once off dobutamine
-D/C liu catheter
-Will transition off insulin today per protocol, tele phase when able to wean off dobutamine
-Monitor chest tube drainage: 2Meds 315/590
-Maintain cordis
-Maintain temporary A/V wires (will pull before d/c home)
-OOB into chair
Assessment / Plan
-
Assessment:
-S/P Standard sternotomy with aortic and right atrial cannulation/Aortic valve replacement [29 mm bioprosthesis]/Left atrial appendage exclusion [35 mm clip], by Dr. Mayer, 10/22/23, pod#1
-Severe aortic valve insufficiency with reduced left ventricular ejection fraction and dilated left ventricle
-Chronic nonischemic systolic heart failure (LVEF 30% intraop; 20-25% per echo 12/18/20)
-History of EtOH usage
-Former tobacco use (quit 1986)
-Mild stable coronary disease
-Chronic Left bundle branch block
-Sinus bradycardia (51 bpm)/RBBB preop
-Osteoarthritis
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
-S/P excision on mole on back, 02/14/22
-S/P Appendectomy, 196
-Acute postop blood loss/Anemia (stable without transfusion)
-Acute postop atelectasis
-Intraop Cardiogenic shock, CI 1.7, improved to 2.9 postop on dobutamine @ 5
-Intraop V-fib S/P Shock x 1, Lidocaine
-Acute postop hypovolemia with subsequent hypervolemia
Discussed patient care with: Cardiology, Nursing, Respiratory Therapy, Pharmacy and Care Team
Subjective
Procedure
S/P Standard sternotomy with aortic and right atrial cannulation/Aortic valve replacement [29 mm bioprosthesis]/Left atrial appendage exclusion [35 mm clip], by Dr. Mayer, 10/22/23
-
Date of Service: October 23, 2023
Pt c/o incisional pain, controlled by current analgesics, otherwise feels well
Objective Data
-
PT 19.2 Sec (11.4-14.6) H 10/22/23 10:43
INR 1.64 10/22/23 10:43
APTT 32.6 Sec (23.4-35.0) 10/22/23 10:43
Vital Signs
Vital Signs
Temp Pulse Resp BP Pulse Ox
99.1 F 67 20 97/51 99
10/23/23 02:00 10/23/23 02:00 10/23/23 02:00 10/23/23 01:00 10/23/23 02:00
CT Intake/Output/Weight
10/22/23 10/22/23 10/23/23
06:59 18:59 06:59
Intake Total 1214.7 / 1706.9 492.2 / 1706.9
Output Total 675 / 1120 445 / 1120
Balance 539.7 / 586.9 47.2 / 586.9
SaO2: 99 (2L)
Physical Exam
-
General: Awake, Oriented and AOx3
Cardiovascular: Regular rate & rhythm, No Murmurs, Rub and No Gallop
Respiratory: Decreased Breath Sounds (at bases, otherwise clear)
Sternum: Stable
Incision: Clean, Dry, Intact and Dressing Intact
Extremities: No Edema
Data Reviewed
-
Lab Results: Results Reviewed
Medications: Active Meds Reviewed
Chest X-Ray: Report Reviewed and Image Reviewed
CT Scan: Report Reviewed and Image Reviewed
ECG: Report Reviewed and Image Reviewed
[2023-10-23] MEDS: ROXICODONE 5 MG PO (03:32)
[2023-10-23 03:40] LABS: Glucose - Point of Care 107 mg/dl (70-99)
[2023-10-23 04:16] LABS: Hemoglobin 11.2 g/dL (13.0-18.0); Mean Corp Hgb Conc. 36.1 g/dL (33.0-37.0); Mean Corpuscular Hgb 33.3 pg (27.0-31.0); Mean Corpuscular Volume 92.3 fL (80.0-94.0); Mean Platelet Volume 9.3 fL (7.4-10.4); Platelet Count 123 10^3/uL (130-400); Red Blood Cell Count 3.36 10^6/uL (4.70-6.10)
--- NOTE | 2023-10-23 04:18 | PTCARENOTE ---
CI 2.91. Dobutamine gtt down to 2 MCG/KG/MIN. bp WAS 140'S/60'S, map 70-80'S. PA aware. Will continue to monitor BP with decrease in Dobutamine gtt. Also aware of varying UO, between 10-40 mls/hr. Roxicodone 5 mg po given for 5/10 sternal pain.
Labs drawn and sent.
[2023-10-23 04:19] LABS: INR 1.28; PT 15.8 Sec (11.4-14.6)
[2023-10-23 04:20] LABS: Blood Urea Nitrogen 18 mg/dl (9-20); Calcium 9.2 mg/dl (8.4-10.2); Carbon Dioxide 23 mmol/L (22-30); Chloride 107 mmol/L (98-107); Estimated Creatinine Clearance 97 ml/min; Glucose 106 mg/dl (70-99); Potassium 4.2 mmol/L (3.5-5.1); Sodium 137 mmol/L (135-145); eGFR > 60.00
[2023-10-23 05:27] LABS: Glucose - Point of Care 102 mg/dl (70-99)
--- NOTE | 2023-10-23 06:30 | PTCARENOTE ---
Labs drawn and sent this am. CXR done. EKG done and shown to PA. Cuff and A line discrepancy this am (20 points). ELevated A line BP 150's systolic. Cuff 120-130's. PA aware. Instructed to go by cuff for now. Dilaudid 0.25 mg IV and Tylenol 650 mg
po for pain given.
[2023-10-23 08:11] LABS: Glucose - Point of Care 103 mg/dl (70-99)
[2023-10-23] MEDS: NSS IV (08:11)
[2023-10-23 09:32] LABS: Glucose - Point of Care 121 mg/dl (70-99)
--- NOTE | 2023-10-23 09:43 | W.PN.INTV ---
Today's Communication / Plan
Recommendations
Doing well post extubation
Remains on low dose dobutamine, weaning off per team
Chest tube to be discontinued per protocol
Insulin gtt weaned to off
Encouraged OOB/IS
Assessment
-
Patient is a 78-year-old male with previous history of heart failure with reduced ejection fraction, aortic valve insufficiency, asthma, hypertension presenting for elective surgical replacement of aortic valve. He has had severe aortic valve
insufficiency with associated nonischemic reduced left ventricular function, BLANC, RBBB/LBBB. Underwent replacement on 10/22/2023 and postoperatively transferred to CVICU for further management.
Severe eccentric aortic regurgitation s/p AVR
Perioperative mechanical ventilation
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
Alcohol abuse history
Non-ischemic dilated CM EF=35% (ANDI 10/12/23)
Mild stable CAD, Severe global hypokinesis with EF 15-20% (Cath11/21/20)
Cardiac Cath-Severe global hypokinesis with EF 24%, Multivessel CAD 12/02/2017
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
Osteoarthritis
LBBB
HFrEF
Squamous cell skin cancer s/p excision-back 12/29/19
Precancerous mole removal-back 05/15/11
Mole excision-back 02/20/22
Mohs 12/19/23
HTN
Appendectomy(1961)
[facility]- bee sting 08/2023
Plan
S/p AVR POD #1
Remains on low dose dobutamine
ECHO reviewed with low function, EF 40%
Management of chest tubes per primary service
Pain control
RASS goal of 0 to -1
Intubated for procedure, extubated and doing well
ABG(s) reviewed
CXR with stable postop changes
Maintain supplement oxygen as needed
No prior history of pulmonary disease, patient denies
No prior PFTs for review
Can add nebulizers if needed
Aspiration precautions
Encouraged incentive spirometry, OOB/ambulation/early mobility
Advance diet as tolerated following extubation
GI prophylaxis if indicated for mechanical ventilation >48 hours
Monitor critical I/O's
Christopher/chest tube output
Hb/platelets postoperatively stable
Trend CBC for now
Can transfuse if indicated for Hb <7, plt <50 in surgical patients
DVT prophylaxis including SCDs
Insulin protocol initiated and transitioned off
Diagnostic Data
Chest X-Ray: 10/22/23- Low lung volumes. No active pulmonary process.
CT Scan: CAP 10/20/23- 1. Aortic atherosclerotic changes. No aneurysmal dilation. No aortic stenosis. Mild ectasia left common iliac artery.
2. No acute pulmonary or intra-abdominal process.
3. Prostatomegaly and moderate distention of the urinary bladder suggesting possible outlet obstruction.
Echo: 10/12/23- Dilated LV with moderately reduced systolic function. LVEF is approximately 35% by visual estimation. Mild diffuse global hypokinesis. Normal RV size and function. Severe eccentric aortic regurgitation likely from non and left
coronary cusp mild coaptation. Compared to prior TTE from April 20, 2023, eccentric aortic regurgitation better visualized and is severe on today's study.
[facility] 10/15/23- CONCLUSIONS
1. Stable mild CAD. The 40% LAD stenosis is angiographically stable and mild, and supplies a small territory. Would not consider bypassing the mid-LAD if the patient is to need AVR.
2. Mildly elevated LVEDP (16 mmHg). Of note, LV tracing does not demonstrate diastasis.
PFT's:
Reports and relevant images were personally reviewed.
-----
Critical Care time 31 mins -- The patient is admitted for acute critical illness for the treatment of vital organ failure and/or prevention of further life-threatening conditions. Total care includes time spent in review of history, physical exam,
medications, hemodynamic/ventilator parameters, laboratory data, imaging and discussion with house staff, pharmacy, respiratory therapy, ladies locker room attendant, and nursing.
Subjective Dataa
Subjective Data
Date of Service:
Date of Service: October 23, 2023
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
Subjective:
Doing well, no complaints
Some pain at incision, trouble wtih deep inhalation
Tolerating diet, sitting in chair
Objective Data
Data Reviewed
Vital Signs / I&O / Oxygen:
Vital Signs
Temp Pulse Resp BP Pulse Ox
98.3 F 72 21 149/87 98
10/23/23 08:00 10/23/23 09:15 10/23/23 09:15 10/23/23 09:15 10/23/23 08:00
Intake and Output
10/22/23 10/23/23 10/24/23
06:59 06:59 06:59
Intake Total 1857.8 / 1884.8 330.4 / 330.4
Output Total 1370 / 1405 145 / 145
Balance 487.8 / 479.8 185.4 / 185.4
SaO2 [CPAP] 100
SaO2 [SIMV] 98
SaO2 98
Nasal Cannula flow liters per 2
minute
Physical Exam
General: Comfortable, Pain, Good Appetite and Other (NAD)
HEENT: Normocephalic, Anicteric and Moist Mucous Membranes
Cardiovascular: S1-S2 and Regular Rhythm
Respiratory: Clear, Non-Labored Respirations and Chest Tube
GI: Soft, Non Distended and Non Tender
Neurology: Awake, Alert, Oriented, AO x 3 and No Motor Deficits
Skin: Warm, Dry and Good Color
Labs/Micro/Reports
Lab Data
10/23/23 03:45
10/23/23 03:45
Laboratory Results
10/22/23 10/22/23 10/23/23
10:43 13:28 03:45
PT 19.2 H 15.8 H
INR 1.64 1.28
APTT 32.6
pH 7.41 7.42
pCO2 40 38
pO2 168 H 166 H
HCO3 25.4 24.6
O2 Delivery Level
Microbiology
10/19/23 10:37 Nose MRSA Screen - Final
No Methicillin Resistant Staphylococcus aureus isolated.
--- NOTE | 2023-10-23 09:43 | PTCARENOTE ---
Patient received from winding operator resting comfortably in bed, AAO X 3, states pain controlled at this time. SB/NSR w/ectopy via cm, SaO2 @ 98% on 2lnc. RIJ Cordis w/[place]-El catheter, L radial arterial lines present - leveled, flushed, and
calibrated w/good waveforms returned. Epicardial A+V wires, disconnected from pulse generator. Mediastinal chest tubes x 2 (Y-connected to one pleurevac), to -20cm suction w/no air leak noted. Christopher catheter to gravity. All procedural sites stable.
Patient updated to plan of care for the day, in agreement. See work list for full assessment and interventions performed.
[2023-10-23 09:47] LABS: Mixed Venous O2 Saturation 81.1 %
[2023-10-23] MEDS: PRAVACHOL 20 MG PO (10:27)
[2023-10-23] MEDS: BACTROBAN 2% OINTMENT 1 APPLIC NASAL ×2 (10:27→19:08)
[2023-10-23] MEDS: PROTONIX 40 MG PO (10:27)
[2023-10-23] MEDS: NEURONTIN 100 MG PO ×3 (10:27→23:07)
[2023-10-23] MEDS: LIDOCAINE 4% PATCH 1 PATCH TOPICAL (10:27)
[2023-10-23] MEDS: FLEXERIL 5 MG PO ×2 (10:27→18:12)
[2023-10-23] MEDS: MAGNESIUM OXIDE 500 MG PO ×2 (10:27→19:08)
[2023-10-23] MEDS: SENOKOT-S 1 TABLET PO ×2 (10:28→19:08)
[2023-10-23] MEDS: LOW STRENGTH ASPIRIN 81 MG PO (10:28)
[2023-10-23 11:08] LABS: Glucose - Point of Care 116 mg/dl (70-99)
[2023-10-23] MEDS: ROXICODONE 2.5 MG PO ×3 (11:14→23:33)
--- NOTE | 2023-10-23 12:07 | PTCARENOTE ---
VS obtained, assessment stable. Patient completed lunch, assisted back to bed for nap. at bedside.
[2023-10-23] MEDS: DOBUTREX 500 MG 250 IV (12:26)
--- NOTE | 2023-10-23 12:27 | W.PN.CD ---
Today's Communication / Plan
-
Cont post op care
OOB to chair if able
ISB
Impression / Plan
-
BACKGROUND: 78M with HFrEF, nonobstructive CAD, LBBB, asthma, and moderate aortic regurgitation presented for AVR.
CIRCUIT COURT JUDGE: Dr. An
Status post surgical aortic valve replacement (29 mm bioprosthesis) on 10/22/[address] Mayer
-Preop LVEF 30%, unchanged without RWMA postoperatively
-EKG appears SR this AM
-Follow telemetry
-Post operative care per CT surgery
HFrEF, chronic
-Maintain euvolemia, on dobutamine
-Resume GDMT as tolerated
-SGLT2i: likely start this admit
-Beta-lenin: Carvedilol 3.125 mg twice daily (on hold)
-MRA: Spironolactone 25 mg daily (on hold)
-AUDELIA/ARB: Sacubitril�valsartan 49-51 mg twice daily (on hold)
-Diuretic: In the outpatient setting he requires 80 every other day, 40 every other day to maintain euvolemia
-ICD: Re-assess LVEF in 3 months
-Trend daily weight, I/O, and BMP
Nonobstructive coronary artery disease
LBBB, chronic
SUBJECTIVE:
Feeling improved no new complaints
Physical Exam
Vital Signs/Labs
Vital Signs
Temp Pulse Resp BP Pulse Ox
99 F 67 23 113/60 97
10/23/23 12:00 10/23/23 12:02 10/23/23 12:02 10/23/23 12:02 10/23/23 12:02
10/22/23 10/23/23 10/24/23
06:59 06:59 06:59
Actual Weight 208 lb 15.971 oz 215 lb 2.738 oz 210 lb 12.191 oz
10/23/23 03:45
10/23/23 03:45
PT 15.8 Sec (11.4-14.6) H 10/23/23 03:45
INR 1.28 10/23/23 03:45
APTT 32.6 Sec (23.4-35.0) 10/22/23 10:43
Magnesium 2.0 mg/dl (1.6-2.3) 10/23/23 03:45
Physical Exam
Constitutional: No acute distress and Comfortable
EENT: Anicteric
Cardiovascular: Rhythm & rate is regular and Pedal edema is absent
Respiratory: Respiratory effort normal and Lungs clear to auscul.
GI: Soft
Neuro/Psych: AO x 3
Data Reviewed
-
Date of Service: October 23, 2023
EKG: Tracing Personally Visualized and interpreted (sr)
Echo: Tracing Personally Visualized and interpreted and Report Reviewed by me
Labs: Labs Reviewed by me
[2023-10-23] MEDS: FERRLECIT 110 MG IV (14:16)
[2023-10-23] MEDS: LASIX 40 MG IV (14:36)
[2023-10-23] MEDS: KCL 20 MEQ PO (14:36)
--- NOTE | 2023-10-23 16:05 | PTCARENOTE ---
VS obtained, assessment stable. States pain controlled. Perusing menu for dinner.
--- NOTE | 2023-10-23 17:18 | W.PN.ANS.POP ---
Anesthesia Post Operative
- Anesthesia Post Op Note
Vital Signs Stable-See Nursing Note: Yes
Airway Patent: Yes
Adequate Pain Control: Yes
Change in Mental Status: No
Current Postoperative Nausea & Vomiting: No
Anesthesia Complications: No
General Anesthetic Recall: No
Unplanned Admission: No
Post Op Hydration Adequate: Yes
- -
patient resting comfortably. No questions or concerns at this time.
[2023-10-23] MEDS: VITAMIN C 1000 MG PO (17:27)
--- NOTE | 2023-10-23 20:00 | PTCARENOTE ---
Report received from [facility]. Walking rounds done. Pt awake, alert, oriented x 4. Speech clear. Pt on 2 L/NC. BBS present. Decreased to B bases. CDB and IS encouraged. IS Peak 2000 mls. Pt in SR with occasional PVCs. Audible heart tones. A and V
pacing wires insulated. Mediastinal CTs x 2, both to -20 cm suction, SSG drainage. Palpable pulses ( see flowsheet). See wound flowsheet for wound/dressing assessments. Abdomen soft, nontender. Hypoactive bs x 4. Pt had liu d/c'ed at 1615. Has not
voided yet. No urge to void. Due to void at ~ 221.
C/O sternal pain and Pain to B shoulder blades 07/15. Oxycodone 2.5 mg given at 1915. Ongoing plan of care and monitoring.
[2023-10-24] VITALS (22 sets, daily range): BP systolic 101–141; BP diastolic 61–89; BMI 28.9
[2023-10-24 04:38] LABS: Hemoglobin 10.4 g/dL (13.0-18.0); Mean Corp Hgb Conc. 34.7 g/dL (33.0-37.0); Mean Corpuscular Hgb 33.7 pg (27.0-31.0); Mean Corpuscular Volume 97.1 fL (80.0-94.0); Red Blood Cell Count 3.09 10^6/uL (4.70-6.10); Red Cell Dist. Width 13.1 % (11.5-14.5); White Blood Cell Count 13.5 10^3/uL (4.8-10.8)
--- NOTE | 2023-10-24 04:46 | W.PN.CT ---
Today's Communication / Plan
-
Plan:
-No major issues overnight. Hemodynamically and neurologically intact
-Dobutamine gtt weaned to 1.5 mcg/kg/min yesterday, may be able to wean down to 1 mcg today and completely off tomorrow
-Currently NSR @ 67 bpm with intermittent PVC's. No further NSVT
-Kirklin and a-line D/C'd yesterday without incident
-Unable to void following liu removal yesterday (scanned for > 500 mL) and required liu reinsertion to allow to sleep comfortably, will d/c this AM
-Cont. current meds (ASA, pravastatin, dobutamine;Amiodarone and BB on hold while on dobutamine)
-Wean off dobutamine as tolerated
-Will transition to telemetry phase when off dobutamine
-Consider d/c of chest tubes if no significant drainage when OOB: 2Meds 130/290. CXR looks clear without ptx on my review
-Monitor platelets while on ASA: 164 ->123 -> 87 today
-Monitor hyponatremia, 133. Cont. gentle diuresis, fluid restriction
-Maintain cordis another day
-Maintain temporary A/V wires another day while on dobutamine (will pull before d/c home)
-OOB into chair/Ambulate
-Home in 1-2 days
-Will likely benefit from repeat echo to reassess LV function off dobutamine before d/c home
Assessment / Plan
-
Assessment:
-S/P Standard sternotomy with aortic and right atrial cannulation/Aortic valve replacement [29 mm bioprosthesis]/Left atrial appendage exclusion [35 mm clip], by Dr. Mayer, 10/22/23, pod#2
-Severe aortic valve insufficiency with reduced left ventricular ejection fraction and dilated left ventricle
-Chronic nonischemic systolic heart failure (LVEF 30% intraop; 20-25% per echo 12/18/20)
-History of EtOH usage
-Former tobacco use (quit 1986)
-Mild stable coronary disease
-Chronic Left bundle branch block
-Sinus bradycardia (51 bpm)/RBBB preop
-Osteoarthritis
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
-S/P excision on mole on back, 02/14/22
-S/P Appendectomy, 196
-Acute postop blood loss/Anemia (stable without transfusion)
-Acute postop thrombocytopenia
-Acute postop atelectasis
-Intraop Cardiogenic shock, CI 1.7, improved to 2.9 postop on dobutamine @ 5
-Intraop V-fib S/P Shock x 1, Lidocaine
-Acute postop hypovolemia with subsequent hypervolemia
-Acute postop urinary retention
-Acute postop hyponatremia, 133
Discussed patient care with: Cardiology, Nursing, Respiratory Therapy, Pharmacy and Care Team
Subjective
Procedure
S/P Standard sternotomy with aortic and right atrial cannulation/Aortic valve replacement [29 mm bioprosthesis]/Left atrial appendage exclusion [35 mm clip], by Dr. Mayer, 10/22/23
-
Date of Service: October 24, 2023
Pt c/o mild incisional pain and urinary retention, otherwise feels well
Objective Data
-
Lab Results
10/24/23 04:09
PT 15.8 Sec (11.4-14.6) H 10/23/23 03:45
INR 1.28 10/23/23 03:45
APTT 32.6 Sec (23.4-35.0) 10/22/23 10:43
Vital Signs
Vital Signs
Temp Pulse Resp BP Pulse Ox
98.9 F 66 17 139/73 100
10/23/23 23:00 10/24/23 03:30 10/24/23 03:30 10/24/23 03:00 10/24/23 03:30
CT Intake/Output/Weight
10/23/23 10/23/23 10/24/23
06:59 18:59 06:59
Intake Total 643.1 / 1884.8 960.3 / 1046.1 85.8 / 1046.1
Output Total 695 / 1405 1075 / 1655 580 / 1655
Balance -51.9 / 479.8 -114.7 / -608.9 -494.2 / -608.9
SaO2: 100 (2L)
Physical Exam
-
General: Awake, Oriented and AOx3
Cardiovascular: Regular rate & rhythm, No Murmurs, No Rub and No Gallop
Respiratory: Decreased Breath Sounds (at bases, otherwise clear)
Sternum: Stable
Incision: Clean, Dry, Intact and Dressing Intact
Extremities: No Edema
Data Reviewed
-
Lab Results: Results Reviewed
Medications: Active Meds Reviewed
Chest X-Ray: Report Reviewed and Image Reviewed
ECG: Report Reviewed and Image Reviewed
[2023-10-24 04:49] LABS: Blood Urea Nitrogen 23 mg/dl (9-20); Calcium 8.6 mg/dl (8.4-10.2); Carbon Dioxide 28 mmol/L (22-30); Chloride 102 mmol/L (98-107); Estimated Creatinine Clearance 97 ml/min; Glucose 116 mg/dl (70-99); Magnesium 2.1 mg/dl (1.6-2.3); Potassium 4.3 mmol/L (3.5-5.1); Sodium 133 mmol/L (135-145); eGFR > 60.00
[2023-10-24 05:33] LABS: Mean Platelet Volume 9.3 fL (7.4-10.4); Platelet Count 87 10^3/uL (130-400)
[2023-10-24] MEDS: TYLENOL 1000 MG PO ×3 (06:12→21:26)
--- NOTE | 2023-10-24 06:35 | PTCARENOTE ---
Candi d/c'ed per order at 0615. Pt assisted up to standing scale, weighed. Then helped to chair. Tolerated transfer. Dobutamine gtt remains at 1.5 mcg/kg/min. Linens changed.
[2023-10-24] MEDS: MAGNESIUM OXIDE 500 MG PO ×2 (08:13→19:04)
[2023-10-24] MEDS: BACTROBAN 2% OINTMENT 1 APPLIC NASAL ×2 (08:13→19:07)
[2023-10-24] MEDS: PROTONIX 40 MG PO (08:13)
[2023-10-24] MEDS: PRAVACHOL 20 MG PO (08:13)
[2023-10-24] MEDS: KCL 20 MEQ PO ×2 (08:13→19:05)
[2023-10-24] MEDS: SENOKOT-S 1 TABLET PO ×2 (08:13→19:04)
[2023-10-24] MEDS: LASIX 40 MG IV ×2 (08:14→15:57)
[2023-10-24] MEDS: NEURONTIN 100 MG PO ×3 (08:17→21:27)
[2023-10-24] MEDS: LOW STRENGTH ASPIRIN 81 MG PO (08:17)
[2023-10-24] MEDS: LIDOCAINE 4% PATCH TOPICAL (08:18)
[2023-10-24] MEDS: NSS 500 IV (08:25)
--- NOTE | 2023-10-24 08:30 | PTCARENOTE ---
Patient care assumed from nightshift RN. Patient fully alert and oriented. Pt on 2LNC. Lung sounds clear with diminished bases. IS encouraged, reaching levels of 2000ml. NSR with occasional PVCs. Audible heart tones. A and V pacing wires insulated.
Mediastinal CTs x 2, both to -20 cm suction, SSG drainage. Palpable pulses. Abdomen soft, nontender, bowel sounds present. Pt had liu d/c'ed at 1615 and now due to void.
--- NOTE | 2023-10-24 09:58 | W.PN.INTV ---
Today's Communication / Plan
Recommendations
Remains on low dose dobut, wean as tolerated
D/c lines once off pressors
Sitting in chair, no complaints
Transfer to tele once off pressors, we will sign off upon transfer
Assessment
-
Patient is a 78-year-old male with previous history of heart failure with reduced ejection fraction, aortic valve insufficiency, asthma, hypertension presenting for elective surgical replacement of aortic valve. He has had severe aortic valve
insufficiency with associated nonischemic reduced left ventricular function, BLANC, RBBB/LBBB. Underwent replacement on 10/22/2023 and postoperatively transferred to CVICU for further management.
Severe eccentric aortic regurgitation s/p AVR
Perioperative mechanical ventilation
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
Alcohol abuse history
Non-ischemic dilated CM EF=35% (ANDI 10/12/23)
Mild stable CAD, Severe global hypokinesis with EF 15-20% (Cath11/21/20)
Cardiac Cath-Severe global hypokinesis with EF 24%, Multivessel CAD 12/02/2017
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
Osteoarthritis
LBBB
HFrEF
Squamous cell skin cancer s/p excision-back 12/29/19
Precancerous mole removal-back 05/15/11
Mole excision-back 02/20/22
Mohs 12/19/23
HTN
Appendectomy(1961)
[facility]- bee sting 08/2023
Plan
S/p AVR POD #1
Remains on low dose dobutamine, wean as tolerated
ECHO reviewed with low function, EF 40%
Management of chest tubes per primary service
Pain control
RASS goal of 0 to -1
Intubated for procedure, extubated and doing well
ABG(s) reviewed
CXR with stable postop changes
Maintain supplement oxygen as needed
No prior history of pulmonary disease, patient denies
No prior PFTs for review
Can add nebulizers if needed
Aspiration precautions
Encouraged incentive spirometry, OOB/ambulation/early mobility
Advance diet as tolerated following extubation
GI prophylaxis if indicated for mechanical ventilation >48 hours
Monitor critical I/O's
Christopher/chest tube output
Hb/platelets postoperatively stable
Trend CBC for now
Can transfuse if indicated for Hb <7, plt <50 in surgical patients
DVT prophylaxis including SCDs
Insulin protocol initiated and transitioned off
Diagnostic Data
Chest X-Ray: 10/22/23- Low lung volumes. No active pulmonary process.
CT Scan: [facility] 10/20/23- 1. Aortic atherosclerotic changes. No aneurysmal dilation. No aortic stenosis. Mild ectasia left common iliac artery.
2. No acute pulmonary or intra-abdominal process.
3. Prostatomegaly and moderate distention of the urinary bladder suggesting possible outlet obstruction.
Echo: 10/12/23- Dilated LV with moderately reduced systolic function. LVEF is approximately 35% by visual estimation. Mild diffuse global hypokinesis. Normal RV size and function. Severe eccentric aortic regurgitation likely from non and left
coronary cusp mild coaptation. Compared to prior TTE from April 20, 2023, eccentric aortic regurgitation better visualized and is severe on today's study.
[facility] 10/15/23- CONCLUSIONS
1. Stable mild CAD. The 40% LAD stenosis is angiographically stable and mild, and supplies a small territory. Would not consider bypassing the mid-LAD if the patient is to need AVR.
2. Mildly elevated LVEDP (16 mmHg). Of note, LV tracing does not demonstrate diastasis.
PFT's:
Reports and relevant images were personally reviewed.
-----
Critical Care time 31 mins -- The patient is admitted for acute critical illness for the treatment of vital organ failure and/or prevention of further life-threatening conditions. Total care includes time spent in review of history, physical exam,
medications, hemodynamic/ventilator parameters, laboratory data, imaging and discussion with house staff, pharmacy, respiratory therapy, statistical geneticist, and nursing.
Subjective Dataa
Subjective Data
Date of Service:
Date of Service: October 24, 2023
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
Subjective:
Doing well, remains on low dose dobut
No complaints, sitting in chair
Objective Data
Data Reviewed
Vital Signs / I&O / Oxygen:
Vital Signs
Temp Pulse Resp BP Pulse Ox
98.1 F 69 22 127/74 99
10/24/23 08:00 10/24/23 08:00 10/24/23 08:00 10/24/23 08:14 10/24/23 08:00
Intake and Output
10/23/23 10/24/23 10/25/23
06:59 06:59 06:59
Intake Total 1857.8 / 1884.8 1131.9 / 1131.9 25.8 / 25.8
Output Total 1370 / 1405 1960 / 1960 175 / 175
Balance 487.8 / 479.8 -828.1 / -828.1 -149.2 / -149.2
SaO2 [CPAP] 100
SaO2 [SIMV] 98
SaO2 99
Nasal Cannula flow liters per 2
minute
Physical Exam
General: Comfortable, Pain, Good Appetite and Other (NAD)
HEENT: Normocephalic, Anicteric and Moist Mucous Membranes
Cardiovascular: S1-S2 and Regular Rhythm
Respiratory: Clear, Non-Labored Respirations and Chest Tube
GI: Soft, Non Distended and Non Tender
Neurology: Awake, Alert, Oriented, AO x 3 and No Motor Deficits
Skin: Warm, Dry and Good Color
Labs/Micro/Reports
Lab Data
10/24/23 04:09
10/24/23 04:09
--- NOTE | 2023-10-24 10:48 | W.PN.CD ---
Today's Communication / Plan
-
Weaning dobutamine
GDMT to start tomorrow
Impression / Plan
-
BACKGROUND: 78M with HFrEF, nonobstructive CAD, LBBB, asthma, and moderate aortic regurgitation presented for AVR.
INDUSTRIAL ENG: Dr. An
Status post surgical aortic valve replacement (29 mm bioprosthesis) on 10/22/[address] Mayer
-Preop LVEF 30%, unchanged without RWMA postoperatively
-EKG appears SR this AM
-Follow telemetry
-Post operative care per CT surgery
HFrEF, chronic
-Maintain euvolemia, on dobutamine weaning likely off today
-Resume GDMT as tolerated
-SGLT2i: likely start this admit
-Beta-lenin: Carvedilol 3.125 mg twice daily (on hold)
-MRA: Spironolactone 25 mg daily (on hold)
-AUDELIA/ARB: Sacubitril�valsartan 49-51 mg twice daily (on hold)
-Diuretic: In the outpatient setting he requires 80 every other day, 40 every other day to maintain euvolemia
-ICD: Re-assess LVEF in 3 months
-Trend daily weight, I/O, and BMP
- GDMT to restart likely tomorrow
Nonobstructive coronary artery disease
LBBB, chronic
SUBJECTIVE:
Contineus to feel improved no new complaints
Physical Exam
Vital Signs/Labs
Vital Signs
Temp Pulse Resp BP Pulse Ox
98.1 F 69 22 127/74 99
10/24/23 08:00 10/24/23 08:00 10/24/23 08:00 10/24/23 08:14 10/24/23 08:00
10/23/23 10/24/23 10/25/23
06:59 06:59 06:59
Actual Weight 215 lb 2.738 oz 213 lb 2.992 oz
10/24/23 04:09
10/24/23 04:09
PT 15.8 Sec (11.4-14.6) H 10/23/23 03:45
INR 1.28 10/23/23 03:45
APTT 32.6 Sec (23.4-35.0) 10/22/23 10:43
Magnesium 2.1 mg/dl (1.6-2.3) 10/24/23 04:09
Physical Exam
Constitutional: No acute distress
EENT: Anicteric
Cardiovascular: Rhythm & rate is regular and Pedal edema is absent
Respiratory: Respiratory effort normal and Lungs clear to auscul.
GI: Soft
Neuro/Psych: AO x 3
Data Reviewed
-
Date of Service: October 24, 2023
EKG: Tracing Personally Visualized and interpreted (sr)
Echo: Report Reviewed by me
Labs: Labs Reviewed by me
--- NOTE | 2023-10-24 12:30 | PTCARENOTE ---
AV wires discontinued by PA. Dobutamine gtt continued, weaning down per MD request during rounds. Pt voided 175cc in urinal. Mediastinal chest tubes x2 discontinued without complication, maintaining 99% O2 sat on 2LNC. Lasix 40mg IV given.
[2023-10-24] MEDS: FERRLECIT 110 MG IV (14:26)
--- NOTE | 2023-10-24 16:32 | PTCARENOTE ---
Patient continues to void without complication, has put out an additional 850cc since last note. Dobutamine gtt turned off at 1600. Vital signs remain stable, closely monitoring. Remains with 2LNC. Denies pain. Cordis intact.
[2023-10-24] MEDS: VITAMIN C 1000 MG PO (17:31)
--- NOTE | 2023-10-24 18:26 | PTCARENOTE ---
New PIV placed in R. AC. 2LNC discontinued, pt on room air, O2 sat 99% with no shortness of breath. Ambulated through halls, very well tolerated. Pt has unsteady gait at baseline, states it is due to R. flat foot and L. hip bursitis. Voiding
frequently. Vital signs stable. Dobutamine gtt discontinued at 1600.
--- NOTE | 2023-10-24 20:06 | PTCARENOTE ---
Assumed care of patient at 1900. Patient found resting in bed at time of assessment with family member at bedside. Patient is AOx4, follows commands appropriately, moves all extremities. Lung sounds are diminished at the bases, patient has an saO2
of 95% on RA. Patient pulls 2000mL on IS. Heart sounds have a regular rate and rhythm, patient is SR with PVCs and BBB on the monitor. Patient has normal palpable pulses and trace pedal edema is present. A+V wires are present and insulated. Patient
has soft nontender abdomen with +BS. Patient is voiding clear yellow in urinal. There is a R IJ cordis receiving KVO and R AC 20G PIV. Patient has sternal incision approx with surg adhesive JOAN, and an ABD dressing that is CDI over CT wounds.
Patient has no complaints of pain. VSS. Patient able to ambulate to bathroom with assistx1. Uneven gait noted on ambulation which patient reports is 2/2 L hip bursitis. Patient is stable.
--- NOTE | 2023-10-25 | PTCARENOTE ---
Patient reassessed. VSS. No c/o pain. Remains SR with PVCs and BBB on the monitor.
[2023-10-25 03:00] VITALS: BP 128/70
[2023-10-25 04:22] VITALS: BP 128/70
--- NOTE | 2023-10-25 04:42 | PTCARENOTE ---
Patient reassessed. VSS. No c/o pain. Remains SR with PVCs and BBB. AM labs obtained. Hygiene care provided.
[2023-10-25 04:45] LABS: Hematocrit 30.7 % (39.0-52.0); Hemoglobin 10.5 g/dL (13.0-18.0); Mean Corp Hgb Conc. 34.2 g/dL (33.0-37.0); Mean Corpuscular Hgb 33.3 pg (27.0-31.0); Mean Corpuscular Volume 97.5 fL (80.0-94.0); Mean Platelet Volume 9.5 fL (7.4-10.4); Platelet Count 92 10^3/uL (130-400); Red Blood Cell Count 3.15 10^6/uL (4.70-6.10); Red Cell Dist. Width 13.1 % (11.5-14.5); White Blood Cell Count 11.4 10^3/uL (4.8-10.8)
--- NOTE | 2023-10-25 04:45 | W.PN.CT ---
Today's Communication / Plan
-
Plan:
-No major issues overnight. Hemodynamically and neurologically intact
-Dobutamine gtt weaned off yesterday 10/23
-Transferred to tele phase
-Will obtain 2-view cxr today
-Will resume Coreg and Entresto
-Cont. current meds (ASA, Pravastatin, Lasix; resume Coreg and Entresto)
-Postop thrombocytopenia improvin ->123 -> 87 -> 92 today
-Postop hyponatremia has resolved: 133 -> 135 today
-D/C cordis another day
-OOB into chair/Ambulate/Encourage use of IS
-Will likely benefit from repeat echo to reassess LV function off dobutamine before d/c home
-Likely home today
Assessment / Plan
-
Assessment:
-S/P Standard sternotomy with aortic and right atrial cannulation/Aortic valve replacement [29 mm bioprosthesis]/Left atrial appendage exclusion [35 mm clip], by Dr. Mayer, 10/22/23, pod#3
-Severe aortic valve insufficiency with reduced left ventricular ejection fraction and dilated left ventricle
-Chronic nonischemic systolic heart failure (LVEF 30% intraop; 20-25% per echo 12/18/20)
-History of EtOH usage
-Former tobacco use (quit 1986)
-Mild stable coronary disease
-Chronic Left bundle branch block
-Sinus bradycardia (51 bpm)/RBBB preop
-Osteoarthritis
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
-S/P excision on mole on back, 02/14/22
-S/P Appendectomy, 1961
-Acute postop blood loss/Anemia (stable without transfusion)
-Acute postop thrombocytopenia
-Acute postop atelectasis
-Intraop Cardiogenic shock, CI 1.7, improved to 2.9 postop on dobutamine @ 5
-Intraop V-fib S/P Shock x 1, Lidocaine
-Acute postop hypovolemia with subsequent hypervolemia
-Acute postop urinary retention
-Acute postop hyponatremia, 133
Discussed patient care with: Cardiology, Nursing, Respiratory Therapy, Pharmacy and Care Team
Subjective
Procedure
S/P Standard sternotomy with aortic and right atrial cannulation/Aortic valve replacement [29 mm bioprosthesis]/Left atrial appendage exclusion [35 mm clip], by Dr. Mayer, 10/22/23
-
Date of Service: October 25, 2023
Pt c/o mild incisional pain, otherwise feels well
Objective Data
-
PT 15.8 Sec (11.4-14.6) H 10/23/23 03:45
INR 1.28 10/23/23 03:45
APTT 32.6 Sec (23.4-35.0) 10/22/23 10:43
Vital Signs
Vital Signs
Temp Pulse Resp BP Pulse Ox
99.0 F 68 18 128/70 97
10/25/23 03:00 10/25/23 04:30 10/25/23 03:00 10/25/23 04:22 10/25/23 03:00
CT Intake/Output/Weight
10/24/23 10/24/23 10/25/23
06:59 18:59 06:59
Intake Total 171.6 / 1131.9 105.8 / 105.8
Output Total 885 / 1960 2175 / 2935 760 / 2935
Balance -713.4 / -828.1 -2069.2 / -2829.2 -760 / -2829.2
SaO2: 97 (RA)
Physical Exam
-
General: Awake, Oriented and AOx3
Cardiovascular: Regular rate & rhythm, No Murmurs, No Rub and No Gallop
Respiratory: Decreased Breath Sounds (at bases, otherwise clear)
Sternum: Stable
Incision: Clean, Dry, Intact and Dressing Intact
Extremities: No Edema
Data Reviewed
-
Lab Results: Results Reviewed
Medications: Active Meds Reviewed
Chest X-Ray: Report Reviewed and Image Reviewed
ECG: Report Reviewed and Image Reviewed
[2023-10-25 05:00] LABS: Blood Urea Nitrogen 17 mg/dl (9-20); Calcium 8.6 mg/dl (8.4-10.2); Carbon Dioxide 31 mmol/L (22-30); Chloride 100 mmol/L (98-107); Estimated Creatinine Clearance 85 ml/min; Glucose 105 mg/dl (70-99); Magnesium 2.2 mg/dl (1.6-2.3); Potassium 4.3 mmol/L (3.5-5.1); Sodium 135 mmol/L (135-145); eGFR > 60.00
[2023-10-25] MEDS: TYLENOL 1000 MG PO (05:58)
[2023-10-25] MEDS: ENTRESTO 24 MG/26 MG 1 TAB PO (05:58)
[2023-10-25 06:00] VITALS: BMI 28.8
[2023-10-25 07:42] VITALS: BP 124/67
--- NOTE | 2023-10-25 08:21 | W.PN.CD ---
Addendum entered and electronically signed by Doug An MD 10/25/23 08:33:
Discussed lasix dosing with him, he will cont 40 mg daily, with daily weights and knows to increase if he is gaining weight
Original Note:
Today's Communication / Plan
-
Restarting GDMT today
Adding Farxiga 10 mg
Echo pending
Likely d/c later today
Impression / Plan
-
BACKGROUND: 78M with HFrEF, nonobstructive CAD, LBBB, asthma, and moderate aortic regurgitation presented for AVR.
STATISTICAL METHODS PROFESSOR: Dr. An
Status post surgical aortic valve replacement (29 mm bioprosthesis) on 10/22/[address] Mayer
-Preop LVEF 30%, unchanged without RWMA postoperatively
-EKG appears SR this AM
-Follow telemetry
-Post operative care per CT surgery
HFrEF, chronic
-Maintain euvolemia, on dobutamine weaning likely off today
-Resume GDMT as tolerated
-SGLT2i: Farxiga 10 mg starting today
-Beta-lenin: Carvedilol 3.125 mg twice daily (on hold)
-MRA: Spironolactone 25 mg daily restart
-AUDELIA/ARB: Sacubitril�valsartan 49-51 mg home dose, low dose starting today
-Diuretic: In the outpatient setting he requires 80 every other day, 40 every other day to maintain euvolemia
-ICD: Re-assess LVEF in 3 months
-Trend daily weight, I/O, and BMP
- GDMT to restart likely tomorrow
Nonobstructive coronary artery disease
LBBB, chronic
SUBJECTIVE:
Feels great has no new complaints today
Physical Exam
Vital Signs/Labs
Vital Signs
Temp Pulse Resp BP Pulse Ox
97.7 F 68 18 124/67 99
10/25/23 08:00 10/25/23 08:00 10/25/23 08:00 10/25/23 07:42 10/25/23 07:47
10/24/23 10/25/23 10/26/23
06:59 06:59 06:59
Actual Weight 213 lb 2.992 oz 211 lb 13.828 oz
10/25/23 04:22
10/25/23 04:22
PT 15.8 Sec (11.4-14.6) H 10/23/23 03:45
INR 1.28 10/23/23 03:45
APTT 32.6 Sec (23.4-35.0) 10/22/23 10:43
Magnesium 2.2 mg/dl (1.6-2.3) 10/25/23 04:22
Physical Exam
Constitutional: No acute distress
EENT: Anicteric
Cardiovascular: Rhythm & rate is regular and Pedal edema is absent
Respiratory: Respiratory effort normal and Lungs clear to auscul.
GI: Soft
Neuro/Psych: AO x 3
Data Reviewed
-
Date of Service: October 25, 2023
EKG: Tracing Personally Visualized and interpreted (sr)
Labs: Labs Reviewed by me
[2023-10-25] MEDS: SENOKOT-S 1 TABLET PO (08:28)
[2023-10-25] MEDS: PROTONIX 40 MG PO (08:28)
[2023-10-25] MEDS: FARXIGA 10 MG PO (08:28)
[2023-10-25] MEDS: PRAVACHOL 20 MG PO (08:28)
[2023-10-25] MEDS: KCL 20 MEQ PO (08:28)
[2023-10-25] MEDS: MAGNESIUM OXIDE 500 MG PO (08:28)
[2023-10-25] MEDS: LASIX 40 MG PO (08:28)
[2023-10-25] MEDS: COREG 3.125 MG PO (08:28)
[2023-10-25] MEDS: BACTROBAN 2% OINTMENT 1 APPLIC NASAL (08:29)
[2023-10-25] MEDS: LIDOCAINE 4% PATCH TOPICAL (08:29)
[2023-10-25] MEDS: NEURONTIN 100 MG PO (08:29)
[2023-10-25] MEDS: LOW STRENGTH ASPIRIN 81 MG PO (08:29)
--- NOTE | 2023-10-25 08:39 | W.DCSUMMARY ---
Discharge Summary
Discharge Data
Date of Admission: 10/22/23
Date of Discharge: 10/25/23
Total time spent discharging patient (in min): 45
-
Pending Results: No
Hospital Course
Primary care physician:
Dr. Jeremias Oviedo
Outpatient entry level account executive:
Dr. An
Inpatient consultants:
CBC, Athletic Field Custodian
Procedures:
1. Surgical aortic valve replacement [29 mm bioprosthesis] and Left atrial appendage exclusion [35 mm clip]
Primary Diagnosis:
1. Aortic valve insufficiency, severe, with dilated left ventricle and reduced left ventricular ejection fraction
Secondary Diagnoses:
1. Chronic nonischemic systolic heart failure with dilated left ventricle
2. History of EtOH usage
3. Mild stable coronary disease
4. Chronic Left bundle branch block
5. Osteoarthritis
6. Squamous cell carcinoma s/p MOHS in 2019
7. Acute postop blood loss anemia
8. Postoperative thrombocytopenia
HPI: 78-year-old male with previous history of heart failure with reduced ejection fraction, aortic valve insufficiency, asthma, hypertension presenting for elective surgical replacement of aortic valve. He has had severe aortic valve
insufficiency with associated nonischemic reduced left ventricular function, BLANC, RBBB/LBBB. Underwent replacement on 10/22/2023 and postoperatively transferred to CVICU for further management.
Hospital course:
Patient post procedure return to the CVICU on dobutamine, Levophed, Precedex, and insulin infusions. Dobutamine was slowly weaned. And patient was weaned off Levophed and given 500 mL of lactated Ringer's and started on aspirin. Precedex was
weaned off and patient was extubated by 1600. On 10/22 postoperative day 1 dobutamine was weaned to 1.5. Windham-El catheter was removed along with the Christopher and arterial line. He was diuresed with 40 mg of IV Lasix in the afternoon. Insulin drip
was weaned off wires were insulated. Chest tubes remained. On 10/23 postoperative day #2 dobutamine was weaned off he was given 40 mg of IV Lasix x 2. Pacing wires and chest tubes were removed. On 10/24 postoperative day #3, patient was started on
40 mg of p.o. Lasix. He was resumed on Coreg and Entresto. Farxiga was resumed after discussion with cardiology. Platelets were beginning to uptrend into the 90s. Follow-up echocardiogram was preformed and stable. Findings were discussed with
Dr. Mayer Patient was deemed stable for discharge.
Home medication changes:
See below
Discharge Plan
-
Patient Disposition: Home (Routine Discharge)
Discharge Diagnosis/Procedures: Aortic valve replacement
Condition: Good
Diet: Low Cholesterol, 2 Gram Sodium and Restrict fluids to 64 oz
Activity: No strenuous activity
Driving Restrictions: Not until seen by your Dr
Bathing Restrictions: OK to Shower
Blood Work: BMP in 1 week
Other Services: Cardiac Rehab
Specialty Instructions: Weigh Daily- Call MD for wt gain/loss 3 lbs overnight/5 lbs in 1 week
Activity Restrictions/Additional Instructions:
ACTIVITY:
-No strenuous activity: no heavy lifting, pushing, pulling anything over 15 pounds for one month
-continue to use stairs as tolerated
DRIVING RESTRICTIONS:
-No driving for one month or until approved by your surgeon
WOUND CARE:
-Shower daily. Use soap & water.
-No lotions, creams or powders on incision area.
DIET:
-continue a low fat/low cholesterol diet.
-IF you are diabetic, continue carb controlled diet.
CARDIAC REHAB:
-Please make appointment to start in 5-6 weeks with your local hospital program. (See Cardiac Rehabilitation Discharge Booklet).
SPECIALTY INSTRUCTIONS:
-Weigh yourself daily. Call your physician for any weight gain/loss of 3 lbs overnight or 5 lbs in one week.
-REPORT any clicking noise or uneven appearance of your sternum to your surgeon immediately.
-If you smoke, you are instructed to quit. The [place] smoking hotline phone number is [phone]
Referrals:
CT Transitional Care Nurse [Outside]
(
The Cardiothoracic Transitional Care Nurse will call you to set up a visit in 1-2 days.)
[facility] [Outside]
(Cardiac Rehab Orientation appointment is on Wednesday11/29/2023@ 0930AM.
The Cardiac Rehab gym is located on the first floor of the [facility].)
Meme Bryan CRNP [Specified Professional Personl] - 12/15/23 10:00 am (your appt on nov 09 with Meme Bryan was CANCELLED)
Jeremias Oviedo MD [Family Provider] -
Wiliam Mayer MD [Active] - 11/25/23 8:45 am
Additional Discharge Medication Instructions: Your furosemide dose has changed to 40mg Daily
Prescriptions:
New
furosemide 40 mg Tablet
40 mg PO DAILY Qty: 60 0RF
dapagliflozin propanediol 10 mg Tablet
10 mg PO DAILY Qty: 60 1RF
Continued
multivitamin 1 EACH tablet
1 tab PO QPM
calcium carbonate 600 MG tablet
600 mg PO QPM
ascorbic acid (vitamin C) [Vitamin C] 1,000 MG tablet
1,000 mg PO QPM
spironolactone 25 MG tablet
25 mg PO DAILY
carvedilol 3.125 MG tablet
3.125 mg PO BID
pravastatin 20 MG tablet
20 mg PO DAILY
cholecalciferol (vitamin D3) 100 mcg (4,000 unit) Tablet
100 mcg PO QPM Qty: 0
Vitamin E (Dl,Tocopheryl Acet) [Vitamin E] 180 MG Capsule
180 mg PO DAILY
acetaminophen 325 MG tablet
650 mg PO Q4HPRN PRN (Reason: mild pain) 0RF
fexofenadine [Romi Allergy] 180 mg Tablet
180 mg PO DAILYPRN PRN (Reason: seasonal allergies)
aspirin 81 mg Tablet,Chewable
81 mg PO DAILY
potassium chloride 20 mEq Tablet Extended Release
20 meq PO QPM
Entresto 1 EACH tablet
1 tab PO BID
Patient Comments:
Entresto 49-51 mg po BID
Held
Co Q-10 300 MG capsule
300 mg PO DAILY
Hold Instructions: Resume on 11/01/23.
Discontinued
furosemide 40 MG tablet
40 mg PO Q OTHER DAY
furosemide 40 mg Tablet
80 mg PO Q OTHER DAY
Discharge Orders:
Discharge Patient (As Directed); Ordered 10/25/23
Ordered By: Manuela Cowan
Care Plan Goals
Care Plan Goals:
Problem: Readiness for enhanced knowledge related to diagnosis and treatment plan
Goal: Understand your diagnosis and treatment plan needs, including medications if applicable.
Instructions: Know your diagnosis, underlying causes and treatment plan options, including medications if applicable. Consult with your health care team to learn about your diagnosis and treatment plan, including medications if applicable.
Discharge Date and Time
Print Language: GERMAN
--- NOTE | 2023-10-25 08:40 | PTCARENOTE ---
Patient received from nightclub manager RN. No acute issues overnight. Patient OOB to chair, awake and alert, no complaints of pain. Patient ambulated to the bathroom without issues and had a BM. Patient on RA, lungs diminished at the bases, satting 99%.
Patient using IS frequently while in the chair. Patient NSR, BBB w/ PVCs on tele, HRR on auscultation. Trace non-pitting pedal edema. Good bowel sounds, abdomen SNT, dressing in place from CT removal, no drainage. R Cordis in place infusing 10 mL
KVO, dressing CDI. Sternum skin glue intact, approximated, JOAN. Patient updated on POC and possible discharge today, air pollution auditor at the bedside to talk to the patient about med changes. Patient indicated understanding, questions encouraged,
assessment of needs ongoing.
[2023-10-25] MEDS: NSS IV (09:40)
[2023-10-25 11:21] VITALS: BP 95/60
[2023-10-25 11:32] VITALS: BP 134/68
[2023-10-25 11:36] VITALS: BP 134/68; BP 95/60; PULSE 63; O2SAT 98
--- NOTE | 2023-10-25 12:00 | PTCARENOTE ---
VS obtained, assessment stable. Patient worked w/CR, ambulated vu w/out issue. Showered. at bedside for d/c.
--- NOTE | 2023-10-25 13:04 | PTCARENOTE ---
Discharge instructions thoroughly reviewed w/patient and spouse, all questions answered. PIV removed. Patient and all belongings transported to waiting vehicle for d/c home to residence.
== END 2023-10-25 13:06 | disposition home or self-care (01) | DRG 219 ==
LOC: CVICU 05:26
PROVIDERS: Anesthesiology; Clinical Nurse Specialist Acute Care; Physician Assistant Medical; ADMITTING PHYSICIAN Thoracic Surgery (Cardiothoracic Vascular Surgery); CONSULT PHYSICIAN Internal Medicine; FAMILY PHYSICIAN Internal Medicine
PROC: 02L70CK Occlusion of Left Atrial Appendage with Extraluminal Device, Open Approach (ICD-10-PCS; 2023-10-22)
PROC: B24BZZ4 Ultrasonography of Heart with Aorta, Transesophageal (ICD-10-PCS; 2023-10-22)
PROC: 5A1221Z Performance of Cardiac Output, Continuous (ICD-10-PCS; 2023-10-22)
PROC: 02RF08Z Replacement of Aortic Valve with Zooplastic Tissue, Open Approach (ICD-10-PCS; 2023-10-22)
DX: I35.1 Nonrheumatic aortic (valve) insufficiency (principal); I49.01 Ventricular fibrillation; R57.0 Cardiogenic shock; D62 Acute posthemorrhagic anemia; I42.8 Other cardiomyopathies; I50.22 Chronic systolic (congestive) heart failure; I45.2 Bifascicular block; I97.790 Other intraoperative cardiac functional disturbances during cardiac surgery; J98.11 Atelectasis; E87.1 Hypo-osmolality and hyponatremia; I25.10 Atherosclerotic heart disease of native coronary artery without angina pectoris; M19.90 Unspecified osteoarthritis, unspecified site; E78.00 Pure hypercholesterolemia, unspecified; I11.0 Hypertensive heart disease with heart failure; J45.909 Unspecified asthma, uncomplicated; D69.59 Other secondary thrombocytopenia; Y83.2 Surgical operation with anastomosis, bypass or graft as the cause of abnormal reaction of the patient, or of later complication, without mention of misadventure at the time of the procedure; E87.70 Fluid overload, unspecified; E86.1 Hypovolemia; R33.8 Other retention of urine; F10.10 Alcohol abuse, uncomplicated; Z79.82 Long term (current) use of aspirin; Z79.899 Other long term (current) drug therapy; Z82.49 Family history of ischemic heart disease and other diseases of the circulatory system; Z85.828 Personal history of other malignant neoplasm of skin
CPT/HCPCS: 88305; 36415; 71045; 71046; 80048; 80053; 81003; 81015; 82248; 82330; 82565; 82805; 82810; 82947; 82962; 83036; 83735; 84132; 84302; 84520; 85014; 85018; 85025; 85027; 85049; 85610; 85730; 86850; 86900; 86901; 86920; 87070; 93005; 93306; 93312; 93320; 93325; 93880; 94002; J2916; P9045; Q9950

== ENCOUNTER → 2023-11-02 07:16 | Outpatient (REF) | payer MEDICARE, OTHER, SELFPAY ==
[2023-11-02 09:02] LABS: Blood Urea Nitrogen 18 mg/dl (9-20); Calcium 9.2 mg/dl (8.4-10.2); Carbon Dioxide 25 mmol/L (22-30); Chloride 104 mmol/L (98-107); Glucose 102 mg/dl (70-99); Potassium 4.5 mmol/L (3.5-5.1); Sodium 140 mmol/L (135-145); eGFR > 60.00
== END ==
LOC: REG 07:16
PROVIDERS: ATTENDING PHYSICIAN Thoracic Surgery (Cardiothoracic Vascular Surgery); FAMILY PHYSICIAN Internal Medicine
DX: I50.20 Unspecified systolic (congestive) heart failure (principal)
CPT/HCPCS: 36415; 80048

== ENCOUNTER 2023-12-06 15:04 | Outpatient (RCR) | payer MEDICARE, OTHER, SELFPAY | END 2023-12-06 23:59 | disposition home or self-care (01) | LOC: CRHB 15:04 | PROVIDERS: ATTENDING PHYSICIAN Internal Medicine Cardiovascular Disease | DX: Z95.3 Presence of xenogenic heart valve (principal) | CPT/HCPCS: G0422; G0423 ==

== ENCOUNTER 2024-01-05 15:24 | Outpatient (RCR) | payer MEDICARE, OTHER, SELFPAY | END 2024-01-05 23:59 | disposition home or self-care (01) | LOC: CRHB 15:24 | PROVIDERS: ATTENDING PHYSICIAN Internal Medicine Cardiovascular Disease | DX: Z95.2 Presence of prosthetic heart valve (principal) | CPT/HCPCS: G0422; G0423 ==

== ENCOUNTER → 2024-01-25 09:50 | Outpatient (REF) | payer MEDICARE, OTHER, SELFPAY | LOC: RCS 09:50 | PROVIDERS: ATTENDING PHYSICIAN Internal Medicine Cardiovascular Disease; FAMILY PHYSICIAN Internal Medicine | DX: I49.3 Ventricular premature depolarization (principal); I49.8 Other specified cardiac arrhythmias; I50.22 Chronic systolic (congestive) heart failure; I25.10 Atherosclerotic heart disease of native coronary artery without angina pectoris; I44.7 Left bundle-branch block, unspecified | CPT/HCPCS: 93017 ==

== ENCOUNTER 2024-02-04 14:57 | Outpatient (RCR) | payer MEDICARE, OTHER, SELFPAY | END 2024-02-04 23:59 | disposition home or self-care (01) | LOC: CRHB 14:57 | PROVIDERS: ATTENDING PHYSICIAN Internal Medicine Cardiovascular Disease | DX: Z95.2 Presence of prosthetic heart valve (principal) | CPT/HCPCS: 93306; G0422; G0423 ==

== ENCOUNTER 2024-02-23 17:39 | Outpatient (RCR) | payer MEDICARE, OTHER, SELFPAY | END 2024-02-23 23:59 | disposition home or self-care (01) | LOC: CRHB 17:39 | PROVIDERS: ATTENDING PHYSICIAN Internal Medicine Cardiovascular Disease | DX: I25.10 Atherosclerotic heart disease of native coronary artery without angina pectoris (principal); Z95.2 Presence of prosthetic heart valve; I50.22 Chronic systolic (congestive) heart failure | CPT/HCPCS: G0422; G0423 ==

== ENCOUNTER → 2024-05-16 09:18 | Outpatient (REF) | payer MEDICARE, OTHER, SELFPAY | LOC: RCS 09:18 | PROVIDERS: ATTENDING PHYSICIAN Thoracic Surgery (Cardiothoracic Vascular Surgery); FAMILY PHYSICIAN Internal Medicine | DX: Z98.890 Other specified postprocedural states (principal) | CPT/HCPCS: 93306 ==

== ENCOUNTER → 2024-05-30 07:42 | Outpatient (REF) | payer MEDICARE, OTHER, SELFPAY ==
[2024-05-30 08:54] LABS: % Basophils 0.4 % (0-2); % Eosinophils 2.7 % (0-6); % Immature Granulocytes 0.2 % (0-0.5); % Lymphocytes 27.7 % (20.5-51.1); % Monocytes 9.4 % (1.7-9.3); % Neutrophils 59.6 % (42.2-75.2); Absolute Eosinophils 0.2 10^3/uL (0-0.7); Absolute Lymphocytes 1.5 10^3/uL (1.2-3.4); Absolute Monocytes 0.5 10^3/uL (0.1-0.6); Absolute Neutrophils 3.3 10^3/uL (1.4-6.5); Hematocrit 43.7 % (39.0-52.0); Hemoglobin 14.7 g/dL (13.0-18.0); Mean Corp Hgb Conc. 33.6 g/dL (33.0-37.0); Mean Corpuscular Hgb 32.9 pg (27.0-31.0); Mean Corpuscular Volume 97.8 fL (80.0-94.0); Nucleated Red Blood Cells % 0 % (-); Platelet Count 149 10^3/uL (130-400); Red Blood Cell Count 4.47 10^6/uL (4.70-6.10); Red Cell Dist. Width 13.2 % (11.5-14.5); White Blood Cell Count 5.6 10^3/uL (4.8-10.8)
[2024-05-30 09:07] LABS: Urine Albumin Negative (Neg - Trace); Urine Bilirubin Negative (Negative); Urine Character Cloudy (Clear); Urine Color Yellow; Urine Glucose 4+ (Negative); Urine Ketone Negative (Negative); Urine Leukocyte Negative (Negative); Urine Nitrite Positive (Negative); Urine Occult Blood Negative (Negative); Urine Specific Gravity 1.015 (<1.030); Urine Urobilinogen Negative (Neg - 1+)
[2024-05-30 09:16] LABS: Urine Squamous Cell 0-2 /LPF (Few)
[2024-05-30 09:17] LABS: Urine Bacteria Many (Negative); Urine Red Blood Cell 0-2 /HPF (0-2)
[2024-05-30 09:19] LABS: ALT (SGPT) 18 U/L (0-50); AST (SGOT) 21 U/L (17-59); Alkaline Phosphatase 51 U/L (38-126); Blood Urea Nitrogen 23 mg/dl (9-20); Calcium 9.5 mg/dl (8.4-10.2); Carbon Dioxide 31 mmol/L (22-30); Chloride 105 mmol/L (98-107); Glucose 92 mg/dl (70-99); HDL Cholesterol 48 mg/dl; LDL Cholesterol, Calculated 79 mg/dl; Potassium 4.5 mmol/L (3.5-5.1); Sodium 142 mmol/L (135-145); Total Bilirubin 0.8 mg/dl (0.2-1.3); Total Cholesterol 145 mg/dl (50-199); Total Protein 6.4 g/dl (6.3-8.2); Triglyceride 93 mg/dl (10-149); Very Low Density Lipoprotein 18 mg/dl (0-30); eGFR > 60.00
[2024-05-30 09:44] LABS: Glycohemoglobin (HgbA1c) 5.1 % (4.0-5.6)
[2024-05-30 10:32] LABS: Vitamin D, 25-OH*** 55.9 ng/mL (30-80)
[2024-05-30 10:45] LABS: PSA, Total - Screen 3.75 ng/ml (0.0-4.0); TSH 2.39 uIU/ml (0.47-4.68)
== END ==
LOC: REG 07:42
PROVIDERS: ATTENDING PHYSICIAN Internal Medicine
DX: Z00.00 Encounter for general adult medical examination without abnormal findings (principal); I50.23 Acute on chronic systolic (congestive) heart failure; E78.2 Mixed hyperlipidemia; R73.01 Impaired fasting glucose; Z12.5 Encounter for screening for malignant neoplasm of prostate; E55.9 Vitamin D deficiency, unspecified
CPT/HCPCS: 36415; 80053; 80061; 81003; 81015; 82306; 83036; 84443; 85025; G0103

== ENCOUNTER → 2024-11-15 09:00 | Outpatient (REF) | payer MEDICARE, OTHER, SELFPAY | LOC: RCS 09:00 | PROVIDERS: ATTENDING PHYSICIAN Thoracic Surgery (Cardiothoracic Vascular Surgery); FAMILY PHYSICIAN Internal Medicine | DX: Z95.2 Presence of prosthetic heart valve (principal) | CPT/HCPCS: 93306 ==